=== PATIENT | male | born 1970 | race Caucasian/White ===

== ENCOUNTER 2024-05-30 17:23 | Emergency (ER) | payer MEDICAID, SELFPAY ==
[2024-05-30 17:24] VITALS: BMI 21.0
[2024-05-30 17:43] VITALS: BP 138/88; PULSE 75; RESP 20; TEMP 36.7; O2SAT 94
--- NOTE | 2024-05-30 17:53 | PD.EDRME ---
Rapid Medical Screening Exam RME Arrival date/time: 05/30/24 17:23 54-year-old male presents emergency department complaints of abdominal pain ongoing since Chief Complaint: Nausea/Vomiting/Diarrhea Vital signs: Vital Signs Temperature 98.1 F 05/30/24 17:43 Pulse Rate 75 05/30/24 17:43 Respiratory Rate 20 05/30/24 17:43 Blood Pressure 138/88 H 05/30/24 17:43 Pulse Oximetry (%) 94 L 05/30/24 17:43 Oxygen Delivery Method Room Air 05/30/24 17:43
[2024-05-30] MEDS: MG HYD/AL HYD/SIME (Maalox Reg) SUSP 30 ML UDC PO (18:06)
[2024-05-30] MEDS: FAMOTIDINE 20 MG TABLET PO (18:06)
[2024-05-30] MEDS: LIDOCAINE VISCOUS 2% 15 ML UDC PO (18:06)
[2024-05-30 18:08] LABS: Collection Type, Urine Clean Catch; Squamous Epithelial Cell,Urine 0 /hpf (0-5)
[2024-05-30 18:11] LABS: Basophils % (Auto) 1 % (0-2.5); Eosinophils % (Auto) 1 % (0-10); Hematocrit 39.6 % (41.0-53.0); Hemoglobin 14.3 g/dL (13.5-16.0); Immature Granulocytes % (Auto) 0 % (0-0); Immature Granulocytes Auto 0.01 Thou/mm3 (0.00-0.00); Lymphocytes # (Auto) 2.2 Thou/mm3 (1.0-4.8); Lymphocytes % (Auto) 37 % (10-50); Mean Corpuscular HGB Conc 36.1 g/dl (31.0-37.0); Mean Corpuscular Hemoglobin 32.8 pg (25.0-35.0); Mean Corpuscular Volume 91 fL (80-100); Monocytes # (Auto) 0.5 Thou/mm3 (0.0-0.8); Monocytes % (Auto) 8 % (0-12); Neutrophils # (Auto) 3.1 Thou/mm3 (1.8-7.7); Neutrophils % (Auto) 53 % (37-80); Nucleated Red Blood Cell % 0 /100 WBC (0); Platelet Count 261 Thou/mm3 (140-440); RDW Standard Deviation 39.1 fL (35.1-43.9); Red Blood Count 4.36 Miln/mm3 (4.50-5.90); White Blood Count 5.8 Thou/mm3 (3.8-10.6)
[2024-05-30 18:14] LABS: Bilirubin,Urine Negative (Negative); Blood,Urine Negative (Negative); Clarity,Urine Clear (Clear/Hazy); Color,Urine Colorless (Lt Yel-Yel); Culture Indicated,Urine Not Indicated; Glucose, Urine Negative (Negative); Ketones,Urine Negative (Negative); Leukocyte Esterase,Urine Negative (Negative); Nitrite,Urine Negative (Negative); Protein,Urine Negative (Neg - Trace); RBC,Urine 2 /hpf (0-3); Specific Gravity,Urine 1.006 (1.001-1.035); Urobilinogen,Urine Negative mg/dL (0.0-1.0); WBC,Urine < 1 /hpf (0-5)
[2024-05-30 18:20] LABS: Amphetamine/Methamp Scrn,U Negative (Negative); Barbiturate Screen,Urine Negative (Negative); Benzodiazepines Screen,Urine Negative (Negative); Benzoylecgonine Screen, Ur Negative (Negative); Fentanyl Screen,Urine Negative (Negative); Opiate Screen,Urine Negative (Negative); THC Screen,Urine Negative (Negative)
[2024-05-30 18:32] LABS: Alanine Aminotransferase 48 U/L (10-49); Albumin, Serum 4.7 gm/dL (3.5-5.0); Albumin/Globulin Ratio 1.6 (1.2-2.2); Alkaline Phosphatase 117 U/L (46-116); Anion Gap 8 (7-16); Aspartate Amino Transferase 66 U/L (0-34); BUN/Creatinine Ratio 12 Ratio (12-20); Blood Urea Nitrogen 12 mg/dL (9-23); Calcium 9.5 mg/dL (8.3-10.6); Calcium (Corrected) 9.5 mg/dL (8.5-10.1); Carbon Dioxide 27.7 mMol/L (20.0-31.0); Chloride 101 mMol/L (98-107); Estimated Creatinine Clearance 82.8 mL/min (>60); Globulin 2.9 gm/dL (2.3-3.5); Glucose 72 mg/dL (74-106); Lipase 47 U/L (12-53); Osmolality,Calculated 272 (275-295); Potassium 4.1 mMol/L (3.4-5.1); Sodium 137 mMol/L (136-145); Total Protein 7.6 gm/dL (5.7-8.2); Troponin I < 0.020 ng/mL (0.0-0.045); eGFR > 60 See Note
--- NOTE | 2024-05-30 18:49 | EKG_ITS ---
[facility] Test Date: 2024-05-30 Pat Name: INES CARRANZA Department: Room: - Gender: Male [employer]: : 1970 Requested By: Kayode Mckenna Order Number: [id number] Reading MD: Kayode Mckenna Measurements Intervals [place] Rate: 60 P: 56 FL: 154 QRS: 0 QRSD: 98 T: 48 QT: 395 QTc: 396 Interpretive Statements SINUS RHYTHM NONSPECIFIC ST ELEVATION [0.05+ mV ST ELEVATION] No previous ECG available for comparison /store/S0/[id number].pdf
--- NOTE | 2024-05-30 18:49 | XR_ITS ---
Examination: PA lateral chest 2 views Technique: Upright PA lateral chest 2 views Exam date and time: May 30, 2024 1914 hrs. Comparison September 12, 2020 Indications: Shortness of breath cardiac palpitations beginning 2 days ago. Findings: Pulmonary nodule right lower lung zone measures 26 mm compared to 23 mm on July 13, 2020 Normal heart size Parenchymal disease in the right middle lobe obscuring detail right cardiac contour No pulmonary edema The osseous structures are intact Impression: Right middle lobe pneumonia Pulmonary nodule right lower lung zone 26 mm, this nodule measured [address] chest April 24, 2018
--- NOTE | 2024-05-30 20:22 | PD.EDADULT ---
ED General RME/HPI General Chief complaint: Nausea/Vomiting/Diarrhea Stated complaint: BURNING SENSATON IN STOMACH & THROAT X5 DAYS Time Seen by Provider: 05/30/24 20:12 Arrival date/time: 05/30/24 17:23 RME / HPI RME / HPI narrative: 54-year-old male patient came in for evaluation regarding substernal burning sensation, epigastric pain, cough, and throat pain for 5 days, patient told me that during the first day he was vomiting a lot. Patient denies any shortness of breath denies any other complaints no medications taken prior travel. Related Data Previous Rx's ?Medication ?Instructions ?Recorded amoxicillin 875 mg-potassium 1 tab PO BID #14 tabs 05/30/24 clavulanate 125 mg tablet azithromycin 250 mg tablet 250 mg PO QDAY 4 days #4 tabs 05/30/24 (Zithromax) ondansetron HCl 4 mg tablet 4 mg PO Q8H PRN nausea and 05/30/24 vomiting 5 days #20 tabs pantoprazole 40 mg tablet,delayed 40 mg PO QDAY #20 tabs 05/30/24 release (Protonix) Allergies Allergy/AdvReac Type Severity Reaction Status Date / Time No Known Allergies Allergy Verified 05/30/24 17:28 Review of Systems Review of Systems Narrative Review of Systems: Review of system reviewed and within normal limits except mentioned in HPI ED Exam Narrative Physical exam: VITAL SIGNS: Reviewed. GENERAL APPEARANCE: Alert and interactive, follows commands, no acute distress, HEAD AND FACE: Non-traumatic. ENT: PERRL, pink conjunctivitis, eyelid no trauma, Mucous membrane moist. NECK: Supple, nontender, no nuchal rigidity. CHEST: No tenderness, no crepitus, no paradoxical movement, no retractions. LUNGS: Clear, well ventilated, symmetric, no rales, no wheezing, no ronchi, no stridor, good breath sounds bilaterally. HEART: Regular rate, regular rhythm, no murmur, no gallops. ABDOMEN: Soft, positive bowel sounds, nondistended, no guarding, nontender, no rebound, no masses, RECTAL: Deferred. GENITAL: Deferred. NEUROLOGICAL: Gross motor function intact sensory function intact, Appropriate for age. MUSCULOSKELETAL: low back nontender, full range of motion. EXTREMITIES: Nontender, full range of motion. SKIN: Color pink, dry, no rash, no lacerations, no abrasions, no contusions. LYMPHATICS: Deferred. Course Quality Measures none Orders Category Date Time Status Bedside Influenza A&B Antigen Test NOW Care 05/30/24 17:53 Completed EKG (ED ONLY) *Do not use* NOW Care 05/30/24 18:49 Completed EKG (ED Only) Stat Exams 05/30/24 18:49 Ordered XR chest 2V Stat Exams 05/30/24 18:49 Completed CBC Stat Lab 05/30/24 17:59 Completed Comprehensive Metabolic Panel Stat Lab 05/30/24 17:59 Completed Drug Screen,Urine Stat Lab 05/30/24 18:00 Completed Lipase Stat Lab 05/30/24 17:59 Completed Troponin I Stat Lab 05/30/24 17:59 Completed UA, C/S IF [Urinalysis, C/S if Indicated] Stat Lab 05/30/24 18:00 Completed Amoxicillin/Pot Clav 875 [Augmentin 875] Med 05/30/24 20:21 Once 1 tab PO X1 ONE Azithromycin Po [Zithromax PO] Med 05/30/24 20:21 Once 500 mg PO X1 ONE Famotidine [Pepcid] Med 05/30/24 17:52 Discontinued 20 mg PO X1 ONE Lidocaine 2% Viscous [Xylocaine 2% Viscous] Med 05/30/24 17:52 Discontinued 15 ml PO X1 ONE mg Hyd/Al Hyd/Snehal Susp [Maalox Susp] Med 05/30/24 17:52 Discontinued 30 ml PO X1 ONE Vital Signs Vital signs: Vital Signs Temperature 98.1 F 05/30/24 17:43 Pulse Rate 75 05/30/24 17:43 Respiratory Rate 20 05/30/24 17:43 Blood Pressure 138/88 H 05/30/24 17:43 Pulse Oximetry (%) 94 L 05/30/24 17:43 Oxygen Delivery Method Room Air 05/30/24 17:43 [facility] Patient data External records reviewed:: None Clinical information provided by:: patient Social determinants that could affect healthcare access:: none Patient has the following chronic illnesses:: None How is presenting disease/condition affected by chronic disease/condition?: uneffected by Evaluation data The following diagnostics were reviewed and interpreted by me:: lab results and radiology exam(s) Lab and/or radiology exams considered but not ordered:: None Interpretation Summary: See above in the MDM Medications Medications considered but not ordered:: None Medication administrations:: Medication Administration History Discontinued Medications Al Hydrox/Mg Hydrox/Simethicone (Mg Hyd/Al Hyd/Snehal (Maalox Reg) Susp 30 Ml Udc) 30 ml PO X1 ONE Stop: 05/30/24 17:53 Last Admin: 05/30/24 18:06 Dose: 30 ml Documented By: ER Amoxicillin/Clavulanate Potassium (Amoxicillin/Pot Clav 875 Tablet) 1 tab PO X1 ONE Stop: 05/30/24 20:22 Azithromycin (Azithromycin 250 Mg Tablet) 500 mg PO X1 ONE Stop: 05/30/24 20:22 Famotidine (Famotidine 20 Mg Tablet) 20 mg PO X1 ONE Stop: 05/30/24 17:53 Last Admin: 05/30/24 18:06 Dose: 20 mg Documented By: ER Lidocaine HCl (Lidocaine Viscous 2% 15 Ml Udc) 15 ml PO X1 ONE Stop: 05/30/24 17:53 Last Admin: 05/30/24 18:06 Dose: 15 ml Documented By: ER Augmentin, Zithromax, Maalox, famotidine and lidocaine viscus Consultations Consultation(s) initiated? (list below): No Diagnosis Differential Diagnosis ED Complaint MDM: GERD, vomiting, pneumonia Most likely diagnosis given after review of the tests above:: Pneumonia Admission Indicated Admission indicated?: not indicated Explain why admission is indicated or not indicated:: Stable Admission Request Was there a request for admission?: No Disposition Plan Disposition Plan: Discharge Discharge Attestation Discharge Attestation: The patient was given an opportunity to ask questions and understood the discharge instructions. Discharge instructions specifically effects, indications for sooner follow up or return to the emergency department, and the expected course of current diagnosis. Patient condition: Stable Medical Decision Making MDM Narrative MDM Narrative: 54-year-old male patient came in for evaluation regarding substernal burning sensation, epigastric pain, cough, and throat pain for 5 days, patient told me that during the first day he was vomiting a lot. Patient denies any shortness of breath denies any other complaints no medications taken prior travel. EKG as interpreted by me shows sinus rhythm, ventricular rate of 60 bpm, no ST segment elevation or depressions. Chest x-ray showed right middle lobe pneumonia. Laboratory workup all came back unremarkable. Urinalysis no UTI. Patient received Zithromax and Augmentin in the emergency room. Was also given Maalox Pepcid. Patient appears nontoxic and hemodynamically stable. Patient discharged home and instructed to follow-up with primary care provider in 24 to 48 hours. Instructed to return to the emergency department immediately if worsening of symptoms Differential Diagnosis Differential Diagnosis: GERD, vomiting, pneumonia Lab Data 05/30/24 17:59 05/30/24 17:59 Labs: Lab Results 05/30/24 05/30/24 Range/Units 17:59 18:00 WBC 5.8 (3.8-10.6) Thou/mm3 RBC 4.36 L (4.50-5.90) Miln/mm3 Hgb 14.3 (13.5-16.0) g/dL Hct 39.6 L (41.0-53.0) % MCV 91 (80-100) fL MCH 32.8 (25.0-35.0) pg MCHC 36.1 (31.0-37.0) g/dl RDW Std Deviation 39.1 (35.1-43.9) fL Plt Count 261 (140-440) Thou/mm3 Neut % (Auto) 53 (37-80) % Lymph % (Auto) 37 (10-50) % [place] % (Auto) 8 (0-12) % Eos % (Auto) 1 (0-10) % Baso % (Auto) 1 (0-2.5) % Neut # (Auto) 3.1 (1.8-7.7) Thou/mm3 Lymph # (Auto) 2.2 (1.0-4.8) Thou/mm3 [place] # (Auto) 0.5 (0.0-0.8) Thou/mm3 Eos # (Auto) 0.0 (0.0-0.5) Thou/mm3 Baso # (Auto) 0.0 (0.0-0.2) Thou/mm3 Immature Gran # (Auto) 0.01 H (0.00-0.00) Thou/mm3 Absolute Nucleated RBC 0.00 (0.00-0.00) Thou/mm3 Immature Gran % 0 (0-0) % Nucleated RBC % 0 (0) /100 WBC Sodium 137 (136-145) mMol/L Potassium 4.1 (3.4-5.1) mMol/L Chloride 101 (98-107) mMol/L Carbon Dioxide 27.7 (20.0-31.0) mMol/L Anion Gap 8 (7-16) BUN 12 (9-23) mg/dL Creatinine 1.0 (0.6-1.3) mg/dL Estim Creat Clear Calc 82.8 (>60) mL/min eGFR > 60 (60 - ) See Note BUN/Creatinine Ratio 12 (12-20) Ratio Glucose 72 L (74-106) mg/dL Calculated Osmolality 272 L (275-295) Calcium 9.5 (8.3-10.6) mg/dL Corrected Calcium 9.5 (8.5-10.1) mg/dL Total Bilirubin 1.0 (0.3-1.2) mg/dL AST 66 H (0-34) U/L ALT 48 (10-49) U/L Alkaline Phosphatase 117 H (46-116) U/L Troponin I < 0.020 (0.0-0.045) ng/mL Total Protein 7.6 (5.7-8.2) gm/dL Albumin 4.7 (3.5-5.0) gm/dL Globulin 2.9 (2.3-3.5) gm/dL Albumin/Globulin Ratio 1.6 (1.2-2.2) Lipase 47 (12-53) U/L Ur Collection Type Clean Catch Urine Color Colorless A (Lt Yel-Yel) Urine Clarity Clear (Clear/Hazy) Urine pH 6.0 (5.0-7.0) Ur Specific [place] 1.006 (1.001-1.035) Urine Protein Negative (Neg - Trace) Urine Glucose (UA) Negative (Negative) Urine Ketones Negative (Negative) Urine Blood Negative (Negative) Urine Nitrite Negative (Negative) Urine Bilirubin Negative (Negative) Urine Urobilinogen (Auto) Negative (0.0-1.0) mg/dL Ur Leukocyte Esterase Negative (Negative) Urine RBC 2 (0-3) /hpf Urine WBC < 1 (0-5) /hpf Ur Squamous Epith Cells 0 (0-5) /hpf Urine Bacteria None (None) Ur Culture Indicated? Not Indicated Urine Opiates Screen Negative (Negative) Urine Fentanyl Screen Negative (Negative) Ur Barbiturates Screen Negative (Negative) U Amphetamin/Meth Scrn Negative (Negative) U Benzodiazepines Scrn Negative (Negative) U Cocaine Metab Screen Negative (Negative) U Marijuana (THC) Screen Negative (Negative) Discharge Plan Plan Patient Disposition: HOME (Self Care) Disposition Comment: stable Prescriptions/Referrals Prescriptions/Med Rec: New azithromycin [Zithromax] 250 mg tablet 250 mg PO QDAY 4 Days Qty: 4 0RF Rx Instructions: start on day 2 of therapy amoxicillin-pot clavulanate 875-125 mg tablet 1 tab PO BID Qty: 14 0RF ondansetron HCl 4 mg tablet 4 mg PO Q8H PRN (Reason: nausea and vomiting) 5 Days Qty: 20 0RF pantoprazole [Protonix] 40 mg tablet,delayed release (DR/EC) 40 mg PO QDAY Qty: 20 0RF Referrals: No Primary/Family,Physician [Primary Care Provider] - In 1 week Problem List Clinical Impression: Pneumonia, GERD (gastroesophageal reflux disease) Patient/Caregiver Discharge Instructions Discharge Activity: activity as tolerated Education Materials: ED GERD (Adult) Additional Instructions: Thank you for the opportunity for serving you today. You are stable for discharged . You are advised to: Follow-up with your PCP in 1 to 2 days Return to ED for worsening of symptoms Increase oral fluids Take medication as prescribed Print Language: Estonian Stand Alone Forms: Rhonda Award Info., Patient Portal Info Letter
[2024-05-30] MEDS: AMOXICILLIN/POT CLAV 875 TABLET 1 TAB PO (20:33)
[2024-05-30] MEDS: AZITHROMYCIN 250 MG TABLET 500 MG PO (20:33)
== END 2024-05-30 20:39 | disposition home or self-care (01) ==
PROVIDERS: Nurse Practitioner Primary Care; Emergency Provider Emergency Medicine
DX: J18.9 Pneumonia, unspecified organism (principal); K21.9 Gastro-esophageal reflux disease without esophagitis
CPT/HCPCS: 36415; 71046; 80053; 80307; 81001; 83690; 84484; 85025; 87400; 93005; 99283; J3490; A9270

== ENCOUNTER 2024-06-06 10:22 | Inpatient (IN) | payer MEDICAID, SELFPAY ==
[2024-06-06] VITALS (8 sets, daily range): BP systolic 113–134; BP diastolic 77–98; PULSE 58–134; RESP 16–97; TEMP 36.6–37.1; O2SAT 9–98; BMI 20.2
--- NOTE | 2024-06-06 11:13 | XR_ITS ---
EXAMINATION: Ankle, left 3 views . Technique: Ankle AP, oblique, lateral 3 views Date and time of exam: June 06, 2024 11:29 AM Indications: Injury to the ankle today, ankle pain. Findings: Medial malleolar soft tissue swelling No acute fracture No ankle dislocation Impression: No acute ankle fracture
--- NOTE | 2024-06-06 11:15 | PD.EDRME ---
Rapid Medical Screening Exam RME Arrival date/time: 06/06/24 10:22 This is a 54-year-old male who presents to the emergency department with complaints of pain and possible infection to his left ankle. I have greeted and performed a focused initial assessment of this patient. Initial appropriate labs ordered at this time. A comprehensive ED assessment and evaluation of the patient and analysis of all test and completion of medical decision making process will be conducted by additional ED provider. Chief Complaint: Ankle/Foot Injury Time Seen by Provider: 06/06/24 10:54 Vital signs: Vital Signs Temperature 97.8 F 06/06/24 11:07 Pulse Rate 89 06/06/24 11:07 Respiratory Rate 19 06/06/24 11:07 Blood Pressure 125/98 H 06/06/24 11:07 Pulse Oximetry (%) 98 06/06/24 11:07 Oxygen Delivery Method Room Air 06/06/24 11:07
[2024-06-06 12:48] LABS: Lactate (Lactic Acid) 2.1 mMol/L (0.4-2.0)
[2024-06-06 12:54] LABS: Basophils % (Auto) 0 % (0-2.5); Eosinophils % (Auto) 0 % (0-10); Immature Granulocytes % (Auto) 1 % (0-0); Immature Granulocytes Auto 0.15 Thou/mm3 (0.00-0.00); Lymphocytes # (Auto) 0.6 Thou/mm3 (1.0-4.8); Lymphocytes % (Auto) 4 % (10-50); Mean Corpuscular HGB Conc 35.9 g/dl (31.0-37.0); Mean Corpuscular Hemoglobin 32.7 pg (25.0-35.0); Mean Corpuscular Volume 91 fL (80-100); Monocytes # (Auto) 1.6 Thou/mm3 (0.0-0.8); Monocytes % (Auto) 9 % (0-12); Neutrophils # (Auto) 15.5 Thou/mm3 (1.8-7.7); Neutrophils % (Auto) 86 % (37-80); Nucleated Red Blood Cell % 0 /100 WBC (0); Platelet Count 282 Thou/mm3 (140-440); RDW Standard Deviation 40.2 fL (35.1-43.9); Red Blood Count 4.28 Miln/mm3 (4.50-5.90); White Blood Count 17.9 Thou/mm3 (3.8-10.6)
[2024-06-06 13:28] LABS: Alanine Aminotransferase 43 U/L (10-49); Albumin, Serum 5.2 gm/dL (3.5-5.0); Albumin/Globulin Ratio 1.9 (1.2-2.2); Alkaline Phosphatase 87 U/L (46-116); Anion Gap 15 (7-16); Aspartate Amino Transferase 43 U/L (0-34); BUN/Creatinine Ratio 27 Ratio (12-20); Bilirubin,Total 3.2 mg/dL (0.3-1.2); Blood Urea Nitrogen 59 mg/dL (9-23); Calcium 10.1 mg/dL (8.3-10.6); Calcium (Corrected) 10.1 mg/dL (8.5-10.1); Carbon Dioxide 23.6 mMol/L (20.0-31.0); Chloride 102 mMol/L (98-107); Creatinine (Component) 2.2 mg/dL (0.6-1.3); Estimated Creatinine Clearance 36.1 mL/min (>60); Globulin 2.7 gm/dL (2.3-3.5); Glucose 136 mg/dL (74-106); Osmolality,Calculated 299 (275-295); Potassium 3.3 mMol/L (3.4-5.1); Sodium 141 mMol/L (136-145); Total Protein 7.9 gm/dL (5.7-8.2); eGFR 35 See Note
[2024-06-06 14:12] LABS: Sed Rate (ESR) 7 mm/hr (0-20)
[2024-06-06 14:19] LABS: Amphetamine/Methamp Scrn,U Negative (Negative); Barbiturate Screen,Urine Negative (Negative); Benzodiazepines Screen,Urine Negative (Negative); Benzoylecgonine Screen, Ur Negative (Negative); Fentanyl Screen,Urine Negative (Negative); Opiate Screen,Urine Negative (Negative); THC Screen,Urine Negative (Negative)
[2024-06-06 15:46] LABS: Reflex Lactate? Y
[2024-06-06 16:04] LABS: Lactic Acid, 3 HR 1.6 mMol/L (0.4-2.0)
--- NOTE | 2024-06-06 16:14 | XR_ITS ---
Examination: Abdomen sonogram, Limited Date and time of exam: June 06, 2024 at 1908 hrs. Indications: Elevation total bilirubin on laboratory examination today Technique: Real-time william scale transabdominal sonographic images of the upper abdomen obtained. Findings: Normal gallbladder Normal common bile duct 0.3 cm Pancreatic head 2.7 cm Liver 15.2 cm lobular contour fatty infiltration no focal liver lesions Normal hepatopedal portal venous flow Patent IVC Impression: Normal gallbladder Normal common bile duct Primary hepatocellular disease versus cirrhosis, clinical correlation advised
--- NOTE | 2024-06-06 16:18 | EDNOTE_ITS ---
<Statement entered by Peace Rogers MD - 06/07/24 03:23> As co-signing physician, I was present and available for consult prn. I concur with the plan and care as documented by the midlevel provider. ED General RME/HPI General Chief complaint: Ankle/Foot Injury Stated complaint: RIGHT FOOT SWELLING AND WOUNDED, POSS DRUG USE Time Seen by Provider: 06/06/24 10:54 Arrival date/time: 06/06/24 10:22 RME / HPI RME / HPI narrative: 54-year-old male patient with significant history of chronic alcohol abuse, drinking 4 or more total con beers every day, last drink 3 days ago came in for evaluation regarding redness and swelling posterior ankle. It has been ongoing for 2 weeks. Patient also was noted to be not eating and drinking for the last 2 days. Patient was noted to be shaky and told me that he probably having withdrawal of alcohol already. Daughter was with the patient who told me some of the story. Patient denies any homicidal or suicidal ideation. Related Data Previous Rx's ?Medication ?Instructions ?Recorded amoxicillin 875 mg-potassium 1 tab PO BID #14 tabs 05/30/24 clavulanate 125 mg tablet pantoprazole 40 mg tablet,delayed 40 mg PO QDAY #20 tabs 05/30/24 release (Protonix) Allergies Allergy/AdvReac Type Severity Reaction Status Date / Time No Known Allergies Allergy Verified 06/06/24 10:25 Review of Systems Review of Systems Narrative Review of Systems: Review of system reviewed and within normal limits except mentioned in HPI ED Exam Narrative Physical exam: VITAL SIGNS: Reviewed. GENERAL APPEARANCE: Alert and interactive, follows commands, no acute distress, shaky, anxious HEAD AND FACE: Non-traumatic. ENT: PERRL, pink conjunctivitis, eyelid no trauma, Mucous membrane moist. NECK: Supple, nontender, no nuchal rigidity. CHEST: No tenderness, no crepitus, no paradoxical movement, no retractions. LUNGS: Clear, well ventilated, symmetric, no rales, no wheezing, no ronchi, no stridor, good breath sounds bilaterally. HEART: Regular rate, regular rhythm, no murmur, no gallops. ABDOMEN: Soft, positive bowel sounds, nondistended, no guarding, nontender, no rebound, no masses, RECTAL: Deferred. GENITAL: Deferred. NEUROLOGICAL: Gross motor function intact sensory function intact, Appropriate for age. MUSCULOSKELETAL: low back nontender, full range of motion. EXTREMITIES: + redness noted on the posterior foot, posterior ankle, and nonfluctuant mild tenderness, full range of motion. SKIN: Color pink, dry, no rash, no lacerations, no abrasions, no contusions. LYMPHATICS: Deferred. Course Quality Measures none Orders Category Date Time Status COVID-19 Screening Questionnaire NOW Care 06/06/24 19:58 Active Decision to Admit X1 Care 06/06/24 19:58 Active Miscellaneous Nursing Order NOW Care 06/06/24 16:22 Active US gall bladder Stat Exams 06/06/24 16:14 Completed XR ankle comp LT min 3V Stat Exams 06/06/24 11:13 Completed Alcohol, Blood Medical Stat Lab 06/06/24 15:58 Completed CBC Stat Lab 06/06/24 12:17 Completed CMP [Comprehensive Metabolic Panel] Stat Lab 06/06/24 12:17 Completed CRP [C-Reactive Protein] Stat Lab 06/06/24 12:17 Completed Drug Screen,Urine Stat Lab 06/06/24 13:19 Completed Lactate (Lactic Acid) Stat Lab 06/06/24 12:17 Completed Lactic Acid, 3 HR Stat Lab 06/06/24 15:58 Completed Procalcitonin Stat Lab 06/06/24 12:17 Completed Sed Rate (ESR) Stat Lab 06/06/24 12:17 Completed LORazepam [Ativan Inj] Med 06/06/24 16:14 Discontinued 1 mg IVP X1 ONE LORazepam [Ativan Inj] Med 06/06/24 19:08 Discontinued 1 mg IVP X1 ONE PHENobarbital Inj 130 mg Med 06/06/24 16:15 Discontinued Sodium Chloride 0.9% Flush [NS Flush] 12 ml IVP X1 Sodium Chloride 0.9% 1000 ml [Ns] 1,000 ml Med 06/06/24 16:15 Discontinued IV 999 mls/hr Sodium Chloride 0.9% 1000 ml [Ns] 1,000 ml Med 06/06/24 16:16 Discontinued IV 999 mls/hr Vancomycin Inj 1,000 mg Med 06/06/24 16:17 Discontinued Sodium Chloride 0.9% 250 ml [Ns] 250 ml IV X1 ceFAZolin/D5W 1 GM IVPB [Ancef Ivpb] Med 06/06/24 16:14 Discontinued 1 gm in 50 ml IV X1 Vital Signs Vital signs: Vital Signs Temperature 97.8 F 06/06/24 11:07 Pulse Rate 89 06/06/24 11:07 Respiratory Rate 19 06/06/24 11:07 Blood Pressure 125/98 H 06/06/24 11:07 Pulse Oximetry (%) 98 06/06/24 11:07 Oxygen Delivery Method Room Air 06/06/24 11:07 [facility] Patient data External records reviewed:: None Clinical information provided by:: patient Social determinants that could affect healthcare access:: alcohol use Patient has the following chronic illnesses:: Chronic alcoholism How is presenting disease/condition affected by chronic disease/condition?: e xacerbated by Evaluation data The following diagnostics were reviewed and interpreted by me:: lab results and radiology exam(s) Lab and/or radiology exams considered but not ordered:: None Interpretation Summary: See results in the [facility] Medications Medications considered but not ordered:: None Medication administrations:: Medication Administration History Discontinued Medications Phenobarbital Sodium 130 mg/ (Sodium Chloride 12 ml) 0 mg IVP X1 ONE Stop: 06/06/24 16:16 Last Admin: 06/06/24 18:36 Dose: 130 mg Documented By: [facility] Sodium Chloride (Ns) 1,000 mls @ 999 mls/hr IV .Q1H1M ONE Stop: 06/06/24 17:15 Last Admin: 06/06/24 18:39 Dose: 999 mls/hr Documented By: [facility] Cefazolin Sodium/Dextrose (Ancef Ivpb) 1 gm in 50 mls @ 100 mls/hr IV X1 ONE Stop: 06/06/24 16:43 Last Infusion: 06/06/24 19:02 Dose: Infused Documented By: Admin: 06/06/24 18:41 Dose: 100 mls/hr Documented By: [facility] Sodium Chloride (Ns) 1,000 mls @ 999 mls/hr IV .Q1H1M ONE Stop: 06/06/24 17:16 Last Admin: 06/06/24 18:43 Dose: 999 mls/hr Documented By: [facility] Vancomycin HCl 1,000 mg/ (Sodium Chloride) 250 mls @ 150 mls/hr IV X1 ONE Stop: 06/06/24 17:56 Last Admin: 06/06/24 18:46 Dose: 150 mls/hr Documented By: [facility] Comments: WOULD NOT SCAN Lorazepam (Lorazepam 2 Mg/Ml Vial) 1 mg IVP X1 ONE Stop: 06/06/24 16:15 Last Admin: 06/06/24 18:35 Dose: 1 mg Documented By: [facility] Lorazepam (Lorazepam 2 Mg/Ml Vial) 1 mg IVP X1 ONE Stop: 06/06/24 19:09 Ativan, Vanco, IV fluids x 2 L, phenobarbital IV, and Ancef Consultations Consultation(s) initiated? (list below): No Diagnosis Differential Diagnosis ED Complaint MDM: Alcohol withdrawal, cellulitis foot,/ankle, liver cirrhosis Most likely diagnosis given after review of the tests above:: Alcohol withdrawal symptoms, cellulitis foot/ankle Admission Indicated Admission indicated?: indicated Explain why admission is indicated or not indicated:: Stable for admission Admission Request Was there a request for admission?: Yes Admission Attestation Admission request attestation: Discussed case with [Dr. Cramer] from Hospitalist service regarding admission. Discussed patients ED course, exam findings, labs, and radiology results. The Hospitalist [agrees,] to accept the patient for admission. Disposition Plan Disposition Plan: Admit Medical Decision Making MDM Narrative MDM Narrative: 54-year-old male patient with significant history of chronic alcohol abuse, drinking 4 or more total con beers every day, last drink 3 days ago came in for evaluation regarding redness and swelling posterior ankle. It has been ongoing for 2 weeks. Patient also was noted to be not eating and drinking for the last 2 days. Patient was noted to be shaky and told me that he probably having withdrawal of alcohol already. Daughter was with the patient who told me some of the story. Patient denies any homicidal or suicidal ideation. Initial CIWA score was noted to be 33. Patient workup today is significant for leukocytosis 17.9, potassium 3.3 and creatinine 2.2, BUN of 59, evaluated patient total bili of 3.2 AST of 43 C- reactive 14 Pro-Maykel of 13.7.. Ultrasound gallbladder came back unremarkable. X-ray of the ankle also came back unremarkable. Patient was given Ancef, Vanco, 2 L of IV fluids, patient was also given Ativan IV, and phenobarbital IV. Spoke with hospitalist, who admitted the patient Differential Diagnosis Differential Diagnosis: Alcohol withdrawal, cellulitis foot,/ankle, liver cirrhosis Lab Data 06/06/24 12:17 06/06/24 12:17 Labs: Lab Results 06/06/24 06/06/24 06/06/24 Range/Units 12:17 13:19 15:58 WBC 17.9 H D (3.8-10.6) Thou/mm3 RBC 4.28 L (4.50-5.90) Miln/mm3 Hgb 14.0 (13.5-16.0) g/dL Hct 39.0 L (41.0-53.0) % MCV 91 (80-100) fL MCH 32.7 (25.0-35.0) pg MCHC 35.9 (31.0-37.0) g/dl RDW Std Deviation 40.2 (35.1-43.9) fL Plt Count 282 (140-440) Thou/mm3 Neut % (Auto) 86 H (37-80) % Lymph % (Auto) 4 L (10-50) % Elbert % (Auto) 9 (0-12) % Eos % (Auto) 0 (0-10) % Baso % (Auto) 0 (0-2.5) % Neut # (Auto) 15.5 H (1.8-7.7) Thou/mm3 Lymph # (Auto) 0.6 L (1.0-4.8) Thou/mm3 Elbert # (Auto) 1.6 H (0.0-0.8) Thou/mm3 Eos # (Auto) 0.0 (0.0-0.5) Thou/mm3 Baso # (Auto) 0.0 (0.0-0.2) Thou/mm3 Immature Gran # (Auto) 0.15 H (0.00-0.00) Thou/mm3 Absolute Nucleated RBC 0.00 (0.00-0.00) Thou/mm3 Immature Gran % 1 H (0-0) % Nucleated RBC % 0 (0) /100 WBC ESR 7 (0-20) mm/hr Sodium 141 (136-145) mMol/L Potassium 3.3 L (3.4-5.1) mMol/L Chloride 102 (98-107) mMol/L Carbon Dioxide 23.6 (20.0-31.0) mMol/L Anion Gap 15 (7-16) BUN 59 H (9-23) mg/dL Creatinine 2.2 H D (0.6-1.3) mg/dL Estim Creat Clear Calc 36.1 L (>60) mL/min eGFR 35 L (60 - ) See Note BUN/Creatinine Ratio 27 H (12-20) Ratio Glucose 136 H (74-106) mg/dL Calculated Osmolality 299 H (275-295) Lactic Acid 2.1 H 1.6 (0.4-2.0) mMol/L Calcium 10.1 (8.3-10.6) mg/dL Corrected Calcium 10.1 (8.5-10.1) mg/dL Total Bilirubin 3.2 H (0.3-1.2) mg/dL AST 43 H (0-34) U/L ALT 43 (10-49) U/L Alkaline Phosphatase 87 (46-116) U/L C-Reactive Prot, Quant 14.0 H (0.0-0.9) mg/dL Total Protein 7.9 (5.7-8.2) gm/dL Albumin 5.2 H (3.5-5.0) gm/dL Globulin 2.7 (2.3-3.5) gm/dL Albumin/Globulin Ratio 1.9 (1.2-2.2) Procalcitonin 13.70 H (0.0-0.49) ng/ml Urine Opiates Screen Negative (Negative) Urine Fentanyl Screen Negative (Negative) Ur Barbiturates Screen Negative (Negative) U Amphetamin/Meth Scrn Negative (Negative) U Benzodiazepines Scrn Negative (Negative) U Cocaine Metab Screen Negative (Negative) U Marijuana (THC) Screen Negative (Negative) Ethyl Alcohol < 10.0 (0-10.0) mg/dL Discharge Plan Plan Patient Disposition: Admit Acute Care w/in Hospital Disposition Comment: Stable Prescriptions/Referrals Prescriptions/Med Rec: No Action amoxicillin-pot clavulanate 875-125 mg tablet 1 tab PO BID Qty: 14 0RF pantoprazole [Protonix] 40 mg tablet,delayed release (DR/EC) 40 mg PO QDAY Qty: 20 0RF Referrals: Sage Barreto MD [Primary Care Provider] - In 1 week Problem List Clinical Impression: Alcohol withdrawal syndrome, Cellulitis of foot Patient/Caregiver Discharge Instructions Print Language: Swedish Stand Alone Forms: Rhonda Award Info., Patient Portal Info Letter
[2024-06-06 16:49] LABS: Alcohol, Blood Medical < 10.0 mg/dL (0-10.0)
--- NOTE | 2024-06-06 17:31 | PC.NURSE ---
Patient states he drinks a few bud lights a day and last drink was saturday06/05/24
[2024-06-06] MEDS: LORazepam 2 MG/ML VIAL 1 MG IVP ×2 (18:35→20:26)
[2024-06-06] MEDS: PHENobarbital Inj 130 MG, SODIUM CHLORIDE 0.9% FLUSH 12 ML IVP (18:36)
[2024-06-06] MEDS: SODIUM CHLORIDE 0.9% 1000 ML 1,000 ML 999 ML IV ×2 (18:39→18:43)
[2024-06-06] MEDS: ceFAZolin/D5W 1 GM IVPB 1 GM/50 ML BAG IV (18:41)
[2024-06-06] MEDS: Vancomycin Inj 1,000 MG in SODIUM CHLORIDE 0.9% 250 ML 250 ML 150 MG IV (18:46)
--- NOTE | 2024-06-06 20:51 | PD.RESHP ---
Documentation for date of: 06/06/24 HPI History of Present Illness Chief complaint: Left heel redness, swelling x 2 weeks History of present illness: Patient is a 54-year-old male with past medical history of alcohol use disorder who presented to the ED on 06/06/2024 with complaint of redness and swelling to the left heel. At the time of evaluation history is limited due to patient mental status, he had just received 1 mg lorazepam and was lethargic. Patient states he hit the left heel but does not further describe the injury. On chart review of ED notes patient was shaky during intake and initial CIWA 33. Patient had stated last drink was 2 days ago. Patient endorses drinking 5-6 24 oz beers daily. He denies any smoking or other drug use. ED Course: -Initial vitals were within normal limits, patient on room air. -Labs significant for WBC 17.9 with left shift, K 3.3, creatinine 2.2 (baseline 0.9), lactic acid 2.1->1.6, Tbili 3.2, CK 654, CRP 14.0, procalcitonin 13.70 -Utox negative, alcohol level <10.0 -L ankle X-ray showed no acute fracture -Gallbladder US showed normal gallbladder and CBD, primary hepatocellular disease versus cirrhosis -CXR showed R base pneumonia, stable pulmonary mass in the right lower lung zone noted, approximately 24 mm, this nodule measured [address] chest April 24, 2018 -In the ED, patient was given lorazepam 1 mg IV x2, phenobarbital 130 mg IV x1, 1L NS bolus x2 (2L total), cefazolin 1 g IV x1, vancomycin 1 g IV x1 -Patient was admitted for alcohol withdrawal Review of Systems Review of systems otherwise negative except what is mentioned above. Past Medical History Past Medical History Comments H COMMENT: Past Medical History: Alcohol use disorder Family History: Unable to obtain Surgical History: Umbilical hernia repair Social History: Current alcohol use 5-6 24 oz beers daily, denies history of smoking, denies recreational drug use however noted in the chart is remote history of meth positive Utox Current Medications: None (Source: Patient) Allergies: No known drug allergies Exam Vital Signs Temp Pulse Resp BP Pulse Ox O2 Del Method 98 F 70 18 134/77 H 98 Room Air 06/06/24 20:02 06/06/24 20:02 06/06/24 20:02 06/06/24 20:02 06/06/24 20:02 06/06/24 20:02 Narrative Exam Physical Exam General: Lethargic. Arousable to voice and repeated prompting, but falling back asleep. HEENT: Normocephalic, atraumatic, mucous membranes dry. Heart: Tachycardic rate, regular rhythm, no murmurs. Lungs: Clear to auscultation with no wheezing or crackles. Abdomen: Soft, nondistended, nontender, positive bowel sounds. ?No guarding or rebound tenderness. Neurologic: Alert and oriented to self, birthdate, location but not year, lethargic but no gross neurological deficit, and patient able to move all 4 extremities. Extremities: Left posterior heel with area of localized dark erythema and very mild edema, no drainage or purulence. Skin: No rash or ecchymoses. Results: Labs 06/07/24 04:35 06/07/24 04:35 Labs: Short CBC 06/06/24 Range/Units 12:17 WBC 17.9 H D (3.8-10.6) Thou/mm3 Hgb 14.0 (13.5-16.0) g/dL Hct 39.0 L (41.0-53.0) % Plt Count 282 (140-440) Thou/mm3 BMP 06/06/24 12:17 Sodium 141 Potassium 3.3 L Chloride 102 Carbon Dioxide 23.6 BUN 59 H Creatinine 2.2 H D Glucose 136 H Calcium 10.1 Liver Function 06/06/24 Range/Units 12:17 Total Bilirubin 3.2 H (0.3-1.2) mg/dL AST 43 H (0-34) U/L ALT 43 (10-49) U/L Alkaline Phosphatase 87 (46-116) U/L Albumin 5.2 H (3.5-5.0) gm/dL Quality Measures Quality Measures none Medications Home Medications and Allergies Allergies Allergy/AdvReac Type Severity Reaction Status Date / Time No Known Allergies Allergy Verified 06/06/24 10:25 Visit Medications Acetaminophen (Acetaminophen 325 Mg Tablet) 650 mg PO Q6H PRN PRN Reason: Fever >100.4 or Pain 1-10 Stop: 07/06/24 20:41 Chlordiazepoxide HCl (Chlordiazepoxide Hcl 25 Mg Capsule) 25 mg PO Q8HR PRN PRN Reason: CIWA >9 Stop: 06/07/24 20:49 Folic Acid (Folic Acid 1 Mg Tablet) 1 mg PO BID [facility] Stop: 06/11/24 20:59 Heparin Sodium (Porcine) (Heparin Sod Inj 5000 Unit/Ml Vial) 5,000 unit SC Q12HR [facility] Stop: 06/20/24 20:59 Lactated Ringer's (Lactated Ringers) 1,000 mls @ 125 mls/hr IV .Q8H ONE Stop: 06/07/24 04:44 Lorazepam (Lorazepam 2 Mg/Ml Vial) 0.5 mg IV Q2HR PRN PRN Reason: CIWA SCORE 8-13 Stop: 06/11/24 20:46 Lorazepam (Lorazepam 2 Mg/Ml Vial) 1 mg IV Q2HR PRN PRN Reason: CIWA SCORE 14-19 Stop: 06/11/24 20:46 Lorazepam (Lorazepam 2 Mg/Ml Vial) 2 mg IV Q2HR PRN PRN Reason: CIWA SCORE 20-25 Stop: 06/11/24 20:46 Lorazepam (Lorazepam 2 Mg/Ml Vial) 2 mg IVP X1 PRN PRN Reason: Breakthrough Agitation Ondansetron HCl (Ondansetron Inj 2 Mg/Ml Inj 2 Ml) 4 mg IV Q6H PRN; Protocol PRN Reason: NAUSEA OR VOMITING Stop: 07/06/24 20:41 Thiamine HCl (Thiamine 100 Mg Tablet) 100 mg PO BID [facility] Stop: 06/11/24 20:59 Discontinued Medications Phenobarbital Sodium 130 mg/ (Sodium Chloride 12 ml) 0 mg IVP X1 ONE Stop: 06/06/24 16:16 Last Admin: 06/06/24 18:36 Dose: 130 mg Sodium Chloride (Ns) 1,000 mls @ 999 mls/hr IV .Q1H1M ONE Stop: 06/06/24 17:15 Last Admin: 06/06/24 18:39 Dose: 999 mls/hr Cefazolin Sodium/Dextrose (Ancef Ivpb) 1 gm in 50 mls @ 100 mls/hr IV X1 ONE Stop: 06/06/24 16:43 Last Infusion: 06/06/24 19:02 Dose: Infused Sodium Chloride (Ns) 1,000 mls @ 999 mls/hr IV .Q1H1M ONE Stop: 06/06/24 17:16 Last Admin: 06/06/24 18:43 Dose: 999 mls/hr Vancomycin HCl 1,000 mg/ (Sodium Chloride) 250 mls @ 150 mls/hr IV X1 ONE Stop: 06/06/24 17:56 Last Admin: 06/06/24 18:46 Dose: 150 mls/hr Lorazepam (Lorazepam 2 Mg/Ml Vial) 1 mg IVP X1 ONE Stop: 06/06/24 16:15 Last Admin: 06/06/24 18:35 Dose: 1 mg Lorazepam (Lorazepam 2 Mg/Ml Vial) 1 mg IVP X1 ONE Stop: 06/06/24 19:09 Assessment & Plan Plan 54-year-old male with past medical history of alcohol use disorder who presented to the ED on 06/06/2024 with complaint of redness and swelling to the left heel, found to be actively in alcohol withdrawal with high CIWA, admitted for further management. #Alcohol withdrawal -CIWA ordered -Chlordiazepoxide 25 mg PO TID -Seizure precautions -Thiamine 100 mg PO BID -Folic acid 1 mg PO BID -Protonix 40 mg IV qday -Alcohol cessation counseling #STEPHAN, likely prerenal On admission creatinine 2.2 (baseline 0.9). Possibly prerenal secondary to poor PO intake and/or intrarenal due to underlying rhabdomyolysis causing acute tubular necrosis. -Started LR at 125 ml/hr -CTM, avoid nephrotoxins #Left heel wound, possible cellulitis Left posterior heel with area of localized dark erythema and very mild edema, no drainage or purulence. Not septic on admission however WBC 17 and procal is elevated 13. Unknown mechanism of injury. Will treat as cellulitis and start IV abx then transition to PO. -Started IV ceftriaxone 1 g qday -Pending blood cultures #Rhabdomyolysis CK level 654. Etiologies include alcoholism, crush injury of left heel, prolonged immobilization (unknown living situation). -Ordered UA #Hypokalemia On admission K 3.3. -Repleted with 40 mEq IV -Follow CMP #Elevated total bilirubin On admission Tbili 3.2. 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 Gallbladder US negative for obstructions, suggestive of hepatocellular disease. -Follow CMP, assess symptoms #History of HFrEF with an EF of 35%, last echo documented 2020 -Will administer fluids cautiously, heart failure measures in place, will replete electrolytes as needed -Echo ordered #History of right lower pulmonary nodule measuring 23 mm which appears to be stable Appears on imaging since 2018. Unclear if patient is followed up with this in the outpatient setting, he was directed to do so in the past. -Follow outpatient DVT prophylaxis: Heparin 5,000 U subQ GI prophylaxis: Pantoprazole 40 mg IV daily Diet: NPO due to somnolence/high CIWA Escobar: None Lines: Peripheral IV Antibiotics: Cefazolin x1 [06/06], vancomycin x1 [06/06], ceftriaxone [06/06- ] CODE STATUS: FULL Reason for hospitalization: Alcohol withdrawal Patient plan of care was discussed with the attending physician, Dr. Cantu. Vi Cramer, PGY-2 Attending Provider Attestation/Addendum I have discussed and was present for the essential components of the history, physical examination, diagnosis, and treatment plan with the resident. I agree with the patient's care as documented by the resident and amended herein by me. Omid Cantu DO. Although this document has been carefully reviewed, there may still be some phonetic and other typographical errors. These errors are purely grammatical due to imperfections in the software program and should not be construed in any way to compromise the substance of the patient's medical care during this visit.
[2024-06-06] MEDS: cefTRIAXone/D5w 1gm IV premix 50 ML IV (22:20)
[2024-06-06] MEDS: THIAMINE 100 MG TABLET PO (22:21)
[2024-06-06] MEDS: RINGERS LACTATED 1000 ML 1,000 ML 125 ML IV (22:21)
[2024-06-06] MEDS: FOLIC ACID 1 MG TABLET PO (22:21)
[2024-06-06] MEDS: HEPARIN SOD INJ 5000 UNIT/ML VIAL SC (22:22)
--- NOTE | 2024-06-06 22:29 | XR_ITS ---
Examination: AP chest single view Technique one AP portable upright chest single view Exam date and time: June 06, 2024 1036 hrs. Indications: Coughing congestion this week ago, history pulmonary nodule Findings: Mild right base pneumonia Pulmonary mass in the right lower lung zone again noted, approximately 24 mm, this nodule measured [address] chest April 24, 2018 Mild prominence of ventricle Impression: Right base pneumonia
[2024-06-06] MEDS: POTASSIUM CHL 10 mEq IVPB 10 MEQ/100 ML BAG 100 MEQ IV (23:23)
[2024-06-06 23:33] LABS: Creatine Kinase 654 U/L (34-171)
--- NOTE | 2024-06-06 23:39 | PC.NURSE ---
Joelle care done, inc lg amt of urine.
[2024-06-06] MEDS: LORazepam 2 MG/ML VIAL IV (23:48)
[2024-06-07] VITALS (16 sets, daily range): BP systolic 117–150; BP diastolic 79–98; PULSE 46–135; RESP 13–99; TEMP 36.2–37; O2SAT 89–100; BMI 19.7
[2024-06-07] MEDS: chlordiazePOXIDE HCl 25 MG CAPSULE PO ×4 (00:30→21:01)
[2024-06-07] MEDS: POTASSIUM CHL 10 mEq IVPB 10 MEQ/100 ML BAG 100 MEQ IV ×6 (00:30→11:36)
[2024-06-07] MEDS: LORazepam 2 MG/ML VIAL IV (03:07)
[2024-06-07] MEDS: LORazepam 2 MG/ML VIAL 0.5 MG IV ×2 (06:04→15:17)
[2024-06-07 06:42] LABS: Basophils % (Auto) 0 % (0-2.5); Eosinophils % (Auto) 0 % (0-10); Hematocrit 30.9 % (41.0-53.0); Hemoglobin 10.7 g/dL (13.5-16.0); Immature Granulocytes % (Auto) 1 % (0-0); Immature Granulocytes Auto 0.04 Thou/mm3 (0.00-0.00); Lymphocytes % (Auto) 14 % (10-50); Mean Corpuscular HGB Conc 34.6 g/dl (31.0-37.0); Mean Corpuscular Hemoglobin 33.2 pg (25.0-35.0); Mean Corpuscular Volume 96 fL (80-100); Monocytes # (Auto) 0.8 Thou/mm3 (0.0-0.8); Monocytes % (Auto) 11 % (0-12); Neutrophils # (Auto) 5.5 Thou/mm3 (1.8-7.7); Neutrophils % (Auto) 74 % (37-80); Nucleated Red Blood Cell % 0 /100 WBC (0); Platelet Count 144 Thou/mm3 (140-440); RDW Standard Deviation 42.6 fL (35.1-43.9); Red Blood Count 3.22 Miln/mm3 (4.50-5.90); White Blood Count 7.5 Thou/mm3 (3.8-10.6)
[2024-06-07 07:15] LABS: Alanine Aminotransferase 33 U/L (10-49); Albumin, Serum 3.8 gm/dL (3.5-5.0); Albumin/Globulin Ratio 1.9 (1.2-2.2); Alkaline Phosphatase 63 U/L (46-116); Anion Gap 7 (7-16); Aspartate Amino Transferase 49 U/L (0-34); BUN/Creatinine Ratio 41 Ratio (12-20); Bilirubin,Total 1.5 mg/dL (0.3-1.2); Blood Urea Nitrogen 41 mg/dL (9-23); Calcium 8.6 mg/dL (8.3-10.6); Calcium (Corrected) 8.8 mg/dL (8.5-10.1); Carbon Dioxide 26.1 mMol/L (20.0-31.0); Chloride 109 mMol/L (98-107); Estimated Creatinine Clearance 77.6 mL/min (>60); Glucose 71 mg/dL (74-106); Magnesium 2.4 mg/dL (1.6-2.6); Osmolality,Calculated 291 (275-295); Phosphorous 1.9 mg/dL (2.4-5.1); Potassium 3.3 mMol/L (3.4-5.1); Sodium 142 mMol/L (136-145); Total Protein 5.8 gm/dL (5.7-8.2); eGFR > 60 See Note
--- NOTE | 2024-06-07 08:08 | EKG_ITS ---
[facility] Test Date: 2024-06-07 Pat Name: INES CARRANZA Department: Room: S253A Gender: Male Cat Hooker: AMY : 1970 Requested By: Jason Lan Order Number: [id number] Reading MD: Jason Lan Measurements Intervals [place] Rate: 51 P: 41 MS: 144 QRS: 3 QRSD: 97 T: 16 QT: 442 QTc: 408 Interpretive Statements SINUS BRADYCARDIA MINIMAL VOLTAGE CRITERIA FOR LVH, CONSIDER NORMAL VARIANT Compared to ECG 05/30/2024 19:12:48 Sinus rhythm no longer present ST (T wave) deviation no longer present /store/S0/[id number].pdf
--- NOTE | 2024-06-07 08:21 | PC.NURSE ---
MD Wasiq made aware that patient's HR drops down as low as 41. Pt is asymptomatic. STAT EKG ordered
[2024-06-07] MEDS: THIAMINE 100 MG TABLET PO ×2 (08:47→20:47)
[2024-06-07] MEDS: FOLIC ACID 1 MG TABLET PO ×2 (08:47→20:47)
[2024-06-07] MEDS: PANTOPRAZOLE INJ 40 MG VIAL IV (08:47)
[2024-06-07] MEDS: POTASSIUM PHOS 22.5 MMOL in SODIUM CHLORIDE 0.9% 500 ML 500 ML 82.778 MMOL IV (08:47)
[2024-06-07] MEDS: HEPARIN SOD INJ 5000 UNIT/ML VIAL SC ×2 (08:47→20:47)
--- NOTE | 2024-06-07 09:19 | PC.SS ---
Patient Shai Ross is a 54 Year old male admitted for Alcohol Withdrawal. SS met with patient at bedside to discuss discharge plan and complete initial assessment. Patient was able to verify demographic information. Patient appeared to be alert and oriented. Patient reports he lives in a trailer behind families house. Patient is able to complete all ADL's independently and does not utilize any source of DME. Choice of pharmacy is [facility]. Pt states he drinks 4 tall cans a day for many years. Pt states he is interested in sobriety. Pt open to receiving resources, the following were provided to the pt: Health and Human Services office information on alcohol abuse, the warm line, list of mental health clinics, list of AA meetings, list of alcohol rehabs, and community resource list. PCP is Sage Barreto. Patient reports that he will return back home at time of discharge. SS will need to assist with transportation. Next of Kin, Daughter, Keshawn Ross [phone] Discharge Plan: Home
[2024-06-07 09:28] LABS: Creatine Kinase 612 U/L (34-171)
--- NOTE | 2024-06-07 11:37 | PD.RESPRO ---
Documentation for date of: 06/07/24 Subjective Subjective Interval history: Patient was seen and examined at the bedside this morning. Patient is admitted for alcohol withdrawal and left heel cellulitis. 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 Patient was admitted overnight with extreme somnolence due to Ativan given in the ED therefore limited history was taken. This morning he was AOx3 however was drowsy to answer further questions. He reported that he drinks 24 ounces of alcohol every day. Last drink was yesterday. Examination showed lungs clear to auscultation. Left heel had cellulitis with erythema with clear defined margins with tenderness. Vitals revealed blood pressure stable however he was bradycardic 51 bpm. EKG was ordered which showed sinus bradycardia. He was saturating well on room air. Labs showed improvement in white count and drop of hemoglobin to 10.7 with albumin drop as well most likely dilutional. CHEM panel showed hypokalemia and potassium was repleted. Lactic acidosis resolved. IV K-Phos was given for hypophosphatemia. T. bili improved. AST mildly elevated. Creatinine kinase downtrending. Urinalysis was negative. U tox was negative. Ultrasound gallbladder was unremarkable. Chest x-ray showed right base pneumonia. Ankle x-ray was negative. Will continue with CIWA protocol and added Librium 25 3 times daily. Morning CIWA score was 10. Will continue with ceftriaxone and added doxycycline to cover for pneumonia and cellulitis both. Given history of heart failure with reduced ejection fraction we will follow-up on echocardiogram. He would benefit from goal-directed medical therapy if blood pressure remains stable as outpatient. All labs and orders were reviewed. Exam Vital Signs Temp Pulse Resp BP Pulse Ox O2 Del Method 97.2 F 57 L 15 117/81 97 Room Air 06/07/24 04:00 06/07/24 09:04 06/07/24 09:04 06/07/24 04:00 06/07/24 04:00 06/07/24 04:00 Narrative Exam General: Lethargic. Arousable to voice and repeated prompting, but falling back asleep. HEENT: Normocephalic, atraumatic, mucous membranes dry. Heart: Tachycardic rate, regular rhythm, no murmurs. Lungs: Clear to auscultation with no wheezing or crackles. Abdomen: Soft, nondistended, nontender, positive bowel sounds. ?No guarding or rebound tenderness. Neurologic: Alert and oriented to self, birthdate, location but not year, lethargic but no gross neurological deficit, and patient able to move all 4 extremities. Extremities: Left posterior heel with area of localized dark erythema and very mild edema, no drainage or purulence. Skin: Left posterior heel with area of localized dark erythema and mild edema. No drainage or purulence. Objective Labs 06/07/24 04:35 06/07/24 04:35 Labs: Laboratory Results - last 24 hr 06/06/24 06/06/24 06/06/24 12:17 13:19 15:58 WBC 17.9 H D RBC 4.28 L Hgb 14.0 Hct 39.0 L MCV 91 MCH 32.7 MCHC 35.9 RDW Std Deviation 40.2 Plt Count 282 Neut % (Auto) 86 H Lymph % (Auto) 4 L [place] % (Auto) 9 Eos % (Auto) 0 Baso % (Auto) 0 Neut # (Auto) 15.5 H Lymph # (Auto) 0.6 L [place] # (Auto) 1.6 H Eos # (Auto) 0.0 Baso # (Auto) 0.0 Immature Gran # (Auto) 0.15 H Absolute Nucleated RBC 0.00 Immature Gran % 1 H Nucleated RBC % 0 ESR 7 Sodium 141 Potassium 3.3 L Chloride 102 Carbon Dioxide 23.6 Anion Gap 15 BUN 59 H Creatinine 2.2 H D Estim Creat Clear Calc 36.1 L eGFR 35 L BUN/Creatinine Ratio 27 H Glucose 136 H Calculated Osmolality 299 H Lactic Acid 2.1 H 1.6 Calcium 10.1 Corrected Calcium 10.1 Phosphorus Magnesium Total Bilirubin 3.2 H AST 43 H ALT 43 Alkaline Phosphatase 87 Total Creatine Kinase C-Reactive Prot, Quant 14.0 H Total Protein 7.9 Albumin 5.2 H Globulin 2.7 Albumin/Globulin Ratio 1.9 Procalcitonin 13.70 H Urine Opiates Screen Negative Urine Fentanyl Screen Negative Ur Barbiturates Screen Negative U Amphetamin/Meth Scrn Negative U Benzodiazepines Scrn Negative U Cocaine Metab Screen Negative U Marijuana (THC) Screen Negative Ethyl Alcohol < 10.0 06/06/24 06/07/24 23:00 04:35 WBC 7.5 D RBC 3.22 L Hgb 10.7 L D Hct 30.9 L MCV 96 MCH 33.2 MCHC 34.6 RDW Std Deviation 42.6 Plt Count 144 D Neut % (Auto) 74 Lymph % (Auto) 14 [place] % (Auto) 11 Eos % (Auto) 0 Baso % (Auto) 0 Neut # (Auto) 5.5 Lymph # (Auto) 1.0 [place] # (Auto) 0.8 Eos # (Auto) 0.0 Baso # (Auto) 0.0 Immature Gran # (Auto) 0.04 H Absolute Nucleated RBC 0.00 Immature Gran % 1 H Nucleated RBC % 0 ESR Sodium 142 Potassium 3.3 L Chloride 109 H Carbon Dioxide 26.1 Anion Gap 7 BUN 41 H Creatinine 1.0 D Estim Creat Clear Calc 77.6 eGFR > 60 BUN/Creatinine Ratio 41 H Glucose 71 L D Calculated Osmolality 291 Lactic Acid Calcium 8.6 D Corrected Calcium 8.8 Phosphorus 1.9 L Magnesium 2.4 Total Bilirubin 1.5 H D AST 49 H ALT 33 Alkaline Phosphatase 63 D Total Creatine Kinase 654 H 612 H D C-Reactive Prot, Quant Total Protein 5.8 Albumin 3.8 D Globulin 2.0 L Albumin/Globulin Ratio 1.9 Procalcitonin Urine Opiates Screen Urine Fentanyl Screen Ur Barbiturates Screen U Amphetamin/Meth Scrn U Benzodiazepines Scrn U Cocaine Metab Screen U Marijuana (THC) Screen Ethyl Alcohol Quality Measures Quality Measures VTE prophylaxis (Heparin subcut) Assessment & Plan Assessment Current Active Medications: Generic Name Dose Route Start Last Admin Trade Name Freq PRN Reason Stop Dose Admin Acetaminophen 650 mg 06/06/24 20:42 Acetaminophen 325 Mg Tablet PO 07/06/24 20:41 Q6H PRN Fever >100.4 or Pain 1-10 Chlordiazepoxide HCl 25 mg 06/06/24 23:50 06/07/24 05:55 Chlordiazepoxide Hcl 25 Mg Capsule PO 06/07/24 23:49 25 mg Q8HR JASMEET Administration Dextrose 25 ml 06/07/24 08:09 Dextrose 50%-Water Inj 50 Ml Syringe IV 07/07/24 08:08 Q15MIN PRN BG 50-70 responsive npo pt Dextrose 50 ml 06/07/24 08:09 Dextrose 50%-Water Inj 50 Ml Syringe IV 07/07/24 08:08 Q15MIN PRN BG <50 OR BG <70 & pt unresponsive Folic Acid 1 mg 06/06/24 21:00 06/07/24 08:47 Folic Acid 1 Mg Tablet PO 06/11/24 20:59 1 mg BID JASMEET Administration Glucagon 1 mg 06/07/24 08:09 Glucagon Inj 1 Mg Vial IM Q15MIN PRN BG <70, and no IV access Heparin Sodium (Porcine) 5,000 unit 06/06/24 21:00 06/07/24 08:47 Heparin Sod Inj 5000 Unit/Ml Vial SC 06/20/24 20:59 5,000 unit Q12HR JASMEET Administration Ceftriaxone Sodium/Dextrose 50 mls @ 100 mls/hr 06/06/24 21:11 06/06/24 23:04 Rocephin/D5w 1gm Iv Premix IV 06/13/24 21:10 Infused QDAY@2100 JASMEET Infusion Potassium Phosphate 22.5 mmol/ 507.5 mls @ 82.778 mls/hr 06/07/24 08:07 06/07/24 08:47 Sodium Chloride IV 06/07/24 14:14 82.778 mls/hr X1 ONE Administration Doxycycline Hyclate 100 mg/ 100 mls @ 100 mls/hr 06/07/24 10:15 Sodium Chloride IV 06/14/24 10:14 BID JASMEET Lorazepam 0.5 mg 06/06/24 20:47 06/07/24 06:04 Lorazepam 2 Mg/Ml Vial IV 06/11/24 20:46 0.5 mg Q2HR PRN Administration CIWA SCORE 8-13 Lorazepam 1 mg 06/06/24 20:47 Lorazepam 2 Mg/Ml Vial IV 06/11/24 20:46 Q2HR PRN CIWA SCORE 14-19 Lorazepam 2 mg 06/06/24 20:47 06/07/24 03:07 Lorazepam 2 Mg/Ml Vial IV 06/11/24 20:46 2 mg Q2HR PRN Administration CIWA SCORE 20-25 Lorazepam 2 mg 06/06/24 20:47 Lorazepam 2 Mg/Ml Vial IVP X1 PRN Breakthrough Agitation Ondansetron HCl 4 mg 06/06/24 20:42 Ondansetron Inj 2 Mg/Ml Inj 2 Ml IV 07/06/24 20:41 Q6H PRN NAUSEA OR VOMITING Protocol Pantoprazole Sodium 40 mg 06/07/24 09:00 06/07/24 08:47 Pantoprazole Inj 40 Mg Vial IV 07/07/24 08:59 40 mg QDAY JASMEET Administration Thiamine HCl 100 mg 06/06/24 21:00 06/07/24 08:47 Thiamine 100 Mg Tablet PO 06/11/24 20:59 100 mg BID JASMEET Administration Plan This 54-year-old male with past medical history of alcohol use disorder who presented to the ED on 06/06/2024 with complaint of redness and swelling to the left heel, found to be actively in alcohol withdrawal with high CIWA, admitted for further management. #Alcohol withdrawal #Alcohol use disorder -Patient drinks 24 ounces of alcohol every day. Last drink was yesterday. -CIWA ordered -Chlordiazepoxide 25 mg PO TID -Seizure and aspiration precautions -Thiamine 100 mg PO BID -Folic acid 1 mg PO BID -Protonix 40 mg IV qday -Alcohol cessation counseling -Ordered nurse swallow screen and speech evaluation #STEPHAN, likely prerenal, improved On admission creatinine 2.2 (baseline 0.9). Possibly prerenal secondary to poor PO intake and/or intrarenal due to underlying rhabdomyolysis causing acute tubular necrosis. -DC'd for IV fluids -CTM, avoid nephrotoxins #Left heel wound, possible cellulitis and right base community-acquired pneumonia Left posterior heel with area of localized dark erythema and very mild edema, no drainage or purulence. Not septic on admission however WBC 17 and procal is elevated 13. Unknown mechanism of injury. Will treat as cellulitis and start IV abx then transition to PO. Ankle x-ray was negative. -Started IV ceftriaxone 1 g qday 06/06 -Added doxycycline 100 mg IV twice daily, 06/07 -Pending blood cultures and MRSA screen -Wound care #Rhabdomyolysis CK level 654. Etiologies include alcoholism, crush injury of left heel, prolonged immobilization (unknown living situation). -UA was unremarkable -CK downtrending #Hypokalemia On admission K 3.3. -40 mEq potassium repleted x 1 -Follow CMP #Elevated total bilirubin On admission Tbili 3.2. 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 Gallbladder US negative for obstructions, suggestive of hepatocellular disease. -Improvement in T. bili -Outpatient follow-up #History of HFrEF with an EF of 35%, last echo documented 2020 #Possibly related to alcohol induced cardiomyopathy -Will administer fluids cautiously, heart failure measures in place, will replete electrolytes as needed -Pending echocardiogram -Will need goal-directed medical therapy as outpatient #History of right lower pulmonary nodule measuring 23 mm which appears to be stable Appears on imaging since 2018. Unclear if patient is followed up with this in the outpatient setting, he was directed to do so in the past. -Follow outpatient and low-dose CT chest after 6 months #Normocytic anemia -Likely dilutional related to fluids -Monitor CBC -No signs of bleeding -PRBC if hemoglobin below 7 #Lactic acidosis, resolved DVT prophylaxis: Heparin 5,000 U subQ GI prophylaxis: Pantoprazole 40 mg IV daily Diet: Regular diet Escobar: None Lines: Peripheral IV Antibiotics: Cefazolin x1 [06/06], vancomycin x1 [06/06], ceftriaxone [06/06- ] and doxycycline [06/07] CODE STATUS: FULL Disposition: Patient is admitted for further workup and management of alcohol withdrawal and left heel cellulitis and right base pneumonia. Patient was seen and discussed with attending physician, Dr. Bubba Lan MD, PGY 2 Attending Provider Attestation/Addendum I have examined the patient, reviewed labs and imaging findings, discussed the case with the resident(s), and reviewed entered orders. I agree with the plan of care as outlined in this note, with these additional summaries/recommendations: Patient seen at bedside. Patient is somnolent at bedside but easily arousable and responds to questions. Currently patient is not the best historian. We will continue CIWA protocol for alcohol withdrawal plus scheduled Librium. Continue thiamine and folic acid. We will director of group counseling program patient on cessation once mentation improves. Patient noted to have left heel wound/cellulitis. Continue IV Rocephin and blood cultures pending. Acute kidney injury on admission has resolved. Minimally elevated total creatinine kinase on admission with no evidence of heme pigment induced nephropathy. Patient has history of HFrEF with previous echo showing EF of 35%. Does not appear to take goal-directed medical therapy and repeat echocardiogram ordered. Follow-up outpatient for pulmonary nodule. Repeat hematology and chemistry panel in AM. Dr. Mac
[2024-06-07] MEDS: DOXYCYCLINE INJ 100 MG in SODIUM CHLORIDE 0.9% (P) 100 ML IV ×2 (11:43→21:27)
--- NOTE | 2024-06-07 18:25 | PC.NURSE ---
Per Wasiq do not hold librium even though patient is sinus julieta.
--- NOTE | 2024-06-07 18:25 | PC.NURSE ---
Report given to FELISA Sexton at this time
[2024-06-07] MEDS: cefTRIAXone/D5w 1gm IV premix 50 ML IV (20:46)
[2024-06-07 22:41] LABS: Collection Type, Urine Clean Catch; Squamous Epithelial Cell,Urine 0 /hpf (0-5)
[2024-06-07 22:49] LABS: Bilirubin,Urine Negative (Negative); Blood,Urine Negative (Negative); Clarity,Urine Clear (Clear/Hazy); Color,Urine Yellow (Lt Yel-Yel); Glucose, Urine 1+ (Negative); Ketones,Urine Negative (Negative); Leukocyte Esterase,Urine Negative (Negative); Nitrite,Urine Negative (Negative); PH,Urine 5.5 (5.0-7.0); Protein,Urine Negative (Neg - Trace); RBC,Urine < 1 /hpf (0-3); WBC,Urine 1 /hpf (0-5)
[2024-06-08] VITALS (8 sets, daily range): BP systolic 113–141; BP diastolic 75–100; PULSE 60–83; RESP 12–97; TEMP 36.4–36.8; O2SAT 95–99
[2024-06-08 06:25] LABS: Basophils % (Auto) 0 % (0-2.5); Eosinophils % (Auto) 1 % (0-10); Hematocrit 31.2 % (41.0-53.0); Hemoglobin 10.9 g/dL (13.5-16.0); Immature Granulocytes % (Auto) 0 % (0-0); Immature Granulocytes Auto 0.01 Thou/mm3 (0.00-0.00); Lymphocytes # (Auto) 1.4 Thou/mm3 (1.0-4.8); Lymphocytes % (Auto) 32 % (10-50); Mean Corpuscular HGB Conc 34.9 g/dl (31.0-37.0); Mean Corpuscular Hemoglobin 32.7 pg (25.0-35.0); Mean Corpuscular Volume 94 fL (80-100); Monocytes # (Auto) 0.5 Thou/mm3 (0.0-0.8); Monocytes % (Auto) 12 % (0-12); Neutrophils # (Auto) 2.4 Thou/mm3 (1.8-7.7); Neutrophils % (Auto) 55 % (37-80); Nucleated Red Blood Cell % 0 /100 WBC (0); Platelet Count 151 Thou/mm3 (140-440); RDW Standard Deviation 41.1 fL (35.1-43.9); Red Blood Count 3.33 Miln/mm3 (4.50-5.90); White Blood Count 4.4 Thou/mm3 (3.8-10.6)
[2024-06-08 06:53] LABS: Alanine Aminotransferase 36 U/L (10-49); Albumin, Serum 3.4 gm/dL (3.5-5.0); Albumin/Globulin Ratio 1.6 (1.2-2.2); Alkaline Phosphatase 59 U/L (46-116); Anion Gap 8 (7-16); Aspartate Amino Transferase 42 U/L (0-34); BUN/Creatinine Ratio 28 Ratio (12-20); Blood Urea Nitrogen 17 mg/dL (9-23); Calcium 8.7 mg/dL (8.3-10.6); Calcium (Corrected) 9.2 mg/dL (8.5-10.1); Chloride 108 mMol/L (98-107); Creatinine (Component) 0.6 mg/dL (0.6-1.3); Estimated Creatinine Clearance 131.5 mL/min (>60); Globulin 2.1 gm/dL (2.3-3.5); Glucose 89 mg/dL (74-106); Magnesium 1.9 mg/dL (1.6-2.6); Osmolality,Calculated 283 (275-295); Phosphorous 1.6 mg/dL (2.4-5.1); Potassium 3.4 mMol/L (3.4-5.1); Sodium 142 mMol/L (136-145); Total Protein 5.5 gm/dL (5.7-8.2); eGFR > 60 See Note
[2024-06-08] MEDS: PANTOPRAZOLE INJ 40 MG VIAL IV (08:34)
[2024-06-08] MEDS: THIAMINE 100 MG TABLET PO (08:34)
[2024-06-08] MEDS: FOLIC ACID 1 MG TABLET PO (08:34)
[2024-06-08] MEDS: HEPARIN SOD INJ 5000 UNIT/ML VIAL SC (08:35)
[2024-06-08] MEDS: DOXYCYCLINE INJ 100 MG in SODIUM CHLORIDE 0.9% (P) 100 ML IV (08:35)
--- NOTE | 2024-06-08 10:30 | PC.SS ---
SS follow up note; Patient is on CIWA Protocol. Echo and Blood cultures pending.
--- NOTE | 2024-06-08 15:31 | PD.RESPRO ---
Documentation for date of: 06/08/24 Subjective Subjective Interval history: CIWA of 1 since last night at around 7 AM. Last dose of Librium was yesterday. Patient notes he is doing well and feels ready to go home. Denies fevers, chills, diaphoresis, visual or auditory hallucinations. States he is feeling his baseline. Exam Vital Signs Temp Pulse Resp BP Pulse Ox O2 Del Method 97.6 F 65 18 128/84 98 Room Air 06/08/24 12:00 06/08/24 12:00 06/08/24 12:06/08/24 12:06/08/24 12:06/08/24 12:00 Narrative Exam Constitutional: In no acute distress Head: Normocephalic/Atraumatic Eyes: no conjunctival injection , symmetrical lids. ENMT: Moist Mucous Membranes, No trauma or injury CVS: RRR, S1 and S2 present, no murmurs, rubs or gallops . RESP: CTAB, no increased work of breathing, no rales, rhonchi or wheezing MSK: No trauma or deformities or masses, clubbing of the fingers Skin: Warm to touch, Dry. No rashes or lesions. No hematomas Neuro: Minor fasciculations of the tongue, small tremors of the fingers, CIWA of 1 Psych: (AAO) x3 . Appropriate mood and affect, denies anxiety, hallucinations. Objective Labs 06/08/24 05:53 06/08/24 05:53 Labs: Laboratory Results - last 24 hr 06/07/24 06/08/24 22:29 05:53 WBC 4.4 D RBC 3.33 L Hgb 10.9 L Hct 31.2 L MCV 94 MCH 32.7 MCHC 34.9 RDW Std Deviation 41.1 Plt Count 151 Neut % (Auto) 55 Lymph % (Auto) 32 [place] % (Auto) 12 Eos % (Auto) 1 Baso % (Auto) 0 Neut # (Auto) 2.4 Lymph # (Auto) 1.4 [place] # (Auto) 0.5 Eos # (Auto) 0.0 Baso # (Auto) 0.0 Immature Gran # (Auto) 0.01 H Absolute Nucleated RBC 0.00 Immature Gran % 0 Nucleated RBC % 0 Sodium 142 Potassium 3.4 Chloride 108 H Carbon Dioxide 26.0 Anion Gap 8 BUN 17 Creatinine 0.6 Estim Creat Clear Calc 131.5 eGFR > 60 BUN/Creatinine Ratio 28 H Glucose 89 Calculated Osmolality 283 Calcium 8.7 Corrected Calcium 9.2 Phosphorus 1.6 L Magnesium 1.9 Total Bilirubin 1.0 D AST 42 H ALT 36 Alkaline Phosphatase 59 Total Protein 5.5 L Albumin 3.4 L Globulin 2.1 L Albumin/Globulin Ratio 1.6 Ur Collection Type Clean Catch Urine Color Yellow Urine Clarity Clear Urine pH 5.5 Ur Specific [place] 1.030 Urine Protein Negative Urine Glucose (UA) 1+ A Urine Ketones Negative Urine Blood Negative Urine Nitrite Negative Urine Bilirubin Negative Urine Urobilinogen (Auto) 4.0 Ur Leukocyte Esterase Negative Urine RBC < 1 Urine WBC 1 Ur Squamous Epith Cells 0 Urine Bacteria None Quality Measures Quality Measures VTE prophylaxis (Heparin subcut) Assessment & Plan Assessment Current Active Medications: Generic Name Dose Route Start Last Admin Trade Name Freq PRN Reason Stop Dose Admin Acetaminophen 650 mg 06/06/24 20:42 Acetaminophen 325 Mg Tablet PO 07/06/24 20:41 Q6H PRN Fever >100.4 or Pain 1-10 Dextrose 25 ml 06/07/24 08:09 Dextrose 50%-Water Inj 50 Ml Syringe IV 07/07/24 08:08 Q15MIN PRN BG 50-70 responsive npo pt Dextrose 50 ml 06/07/24 08:09 Dextrose 50%-Water Inj 50 Ml Syringe IV 07/07/24 08:08 Q15MIN PRN BG <50 OR BG <70 & pt unresponsive Folic Acid 1 mg 06/06/24 21:00 06/08/24 08:34 Folic Acid 1 Mg Tablet PO 06/11/24 20:59 1 mg BID JASMEET Administration Glucagon 1 mg 06/07/24 08:09 Glucagon Inj 1 Mg Vial IM Q15MIN PRN BG <70, and no IV access Heparin Sodium (Porcine) 5,000 unit 06/06/24 21:00 06/08/24 08:35 Heparin Sod Inj 5000 Unit/Ml Vial SC 06/20/24 20:59 5,000 unit Q12HR JASMEET Administration Ceftriaxone Sodium/Dextrose 50 mls @ 100 mls/hr 06/06/24 21:11 06/07/24 22:35 Rocephin/D5w 1gm Iv Premix IV 06/13/24 21:10 Infused QDAY@2100 JASMEET Infusion Doxycycline Hyclate 100 mg/ 100 mls @ 100 mls/hr 06/07/24 10:15 06/08/24 08:35 Sodium Chloride IV 06/14/24 10:14 100 mls/hr BID JASMEET Administration Lorazepam 0.5 mg 06/06/24 20:47 06/07/24 15:17 Lorazepam 2 Mg/Ml Vial IV 06/11/24 20:46 0.5 mg Q2HR PRN Administration CIWA SCORE 8-13 Lorazepam 1 mg 06/06/24 20:47 Lorazepam 2 Mg/Ml Vial IV 06/11/24 20:46 Q2HR PRN CIWA SCORE 14-19 Lorazepam 2 mg 06/06/24 20:47 06/07/24 03:07 Lorazepam 2 Mg/Ml Vial IV 06/11/24 20:46 2 mg Q2HR PRN Administration CIWA SCORE 20-25 Lorazepam 2 mg 06/06/24 20:47 Lorazepam 2 Mg/Ml Vial IVP X1 PRN Breakthrough Agitation Ondansetron HCl 4 mg 06/06/24 20:42 Ondansetron Inj 2 Mg/Ml Inj 2 Ml IV 07/06/24 20:41 Q6H PRN NAUSEA OR VOMITING Protocol Pantoprazole Sodium 40 mg 06/07/24 09:00 06/08/24 08:34 Pantoprazole Inj 40 Mg Vial IV 07/07/24 08:59 40 mg QDAY JASMEET Administration Thiamine HCl 100 mg 06/06/24 21:00 06/08/24 08:34 Thiamine 100 Mg Tablet PO 06/11/24 20:59 100 mg BID JASMEET Administration Plan This 54-year-old male with past medical history of alcohol use disorder who presented to the ED on 06/06/2024 with complaint of redness and swelling to the left heel, found to be actively in alcohol withdrawal with high CIWA, admitted for further management. #Alcohol withdrawal #Alcohol use disorder -Patient drinks 24 ounces of alcohol every day. -CIWA of 1 since yesterday afternoon. -Last dose of chlordiazepoxide yesterday -Seizure and aspiration precautions -Thiamine 100 mg PO BID -Folic acid 1 mg PO BID -Protonix 40 mg IV qday -Alcohol cessation counseling -Ordered nurse swallow screen and speech evaluation #STEPHAN, likely prerenal, improved On admission creatinine 2.2 (baseline 0.9). Possibly prerenal secondary to poor PO intake and/or intrarenal due to underlying rhabdomyolysis causing acute tubular necrosis. -DC'd for IV fluids -CTM, avoid nephrotoxins #Left heel wound, possible cellulitis and right base community-acquired pneumonia Left posterior heel with area of localized dark erythema and very mild edema, no drainage or purulence. Not septic on admission however WBC 17 and procal is elevated 13. Unknown mechanism of injury. Will treat as cellulitis and start IV abx then transition to PO. Ankle x-ray was negative. -Started IV ceftriaxone 1 g qday 06/06 -Added doxycycline 100 mg IV twice daily, 06/07 -Pending blood cultures and MRSA screen -Wound care #Rhabdomyolysis CK level 654. Etiologies include alcoholism, crush injury of left heel, prolonged immobilization (unknown living situation). -UA was unremarkable -CK downtrending #Hypokalemia On admission K 3.3. -40 mEq potassium repleted x 1 -Follow CMP #Elevated total bilirubin On admission Tbili 3.2. 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 Gallbladder US negative for obstructions, suggestive of hepatocellular disease. -Improvement in T. bili -Outpatient follow-up #History of HFrEF with an EF of 35%, last echo documented 2020 #Possibly related to alcohol induced cardiomyopathy -Will administer fluids cautiously, heart failure measures in place, will replete electrolytes as needed -Pending echocardiogram -Will need goal-directed medical therapy as outpatient #History of right lower pulmonary nodule measuring 23 mm which appears to be stable Appears on imaging since 2018. Unclear if patient is followed up with this in the outpatient setting, he was directed to do so in the past. -Follow outpatient and low-dose CT chest after 6 months #Normocytic anemia -Likely dilutional related to fluids -Monitor CBC -No signs of bleeding -PRBC if hemoglobin below 7 #Lactic acidosis, resolved DVT prophylaxis: Heparin 5,000 U subQ GI prophylaxis: Pantoprazole 40 mg IV daily Diet: Regular diet [place]: None Lines: Peripheral IV Antibiotics: Cefazolin x1 [06/06], vancomycin x1 [06/06], ceftriaxone [06/06- ] and doxycycline [06/07] CODE STATUS: FULL Disposition: Patient is admitted for further workup and management of alcohol withdrawal and left heel cellulitis and right base pneumonia. Patient was seen and discussed with attending physician, Dr. Bubba Lan MD, PGY 2 Attending Provider Attestation/Addendum I have examined the patient, reviewed labs and imaging findings, discussed the case with the resident(s), and reviewed entered orders. I agree with the plan of care as outlined in this note, with these additional summaries/recommendations: Patient seen at bedside. Patient is somnolent at bedside but easily arousable and responds to questions. Currently patient is not the best historian. We will continue [employer] protocol for alcohol withdrawal plus scheduled Librium. Continue thiamine and folic acid. We will staff counselor patient on cessation once mentation improves. Patient noted to have left heel wound/cellulitis. Continue IV Rocephin and blood cultures pending. Acute kidney injury on admission has resolved. Minimally elevated total creatinine kinase on admission with no evidence of heme pigment induced nephropathy. Patient has history of HFrEF with previous echo showing EF of 35%. Does not appear to take goal-directed medical therapy and repeat echocardiogram ordered. Follow-up outpatient for pulmonary nodule. Repeat hematology and chemistry panel in AM. Dr. Mac
--- NOTE | 2024-06-08 15:40 | ESDS_ITS ---
<Statement entered by Jason Lan MD - 06/08/24 16:32> I saw and examined the patient, and I agree with current management stated by Dr Ruperto DO,PGY1. Plan of care was discussed with the attending physician and resident physician. Disclaimer: Despite multiple revisions, due to the dictation software being used, the document bellow may not be free of grammatical errors including phonetic/typographic errors. However, this does not deter from our commitment to providing health care in the patient's best interest in mind. Dr. Riky MD, PGY 2 Planned Discharge Date 06/08/24 DS: Providers Provider Date of admission: 06/06/24 20:43 Primary care physician: Sage Barreto MD Admitting Provider: Jose Martin Cantu DO Attending Provider on Admission: Dre Mac MD Consults: 06/06/24 21:12 Referral Wound Care Stat Comment: 06/08/24 12:58 Referral OP Wound Healing Dept Routine Comment: Instructions: Left heel truama from poor fitting shoes. Hx of DM. 06/08/24 13:11 Referral Physical Therapy Stat Comment: Physician Instructions: Attending Provider on DC: Dre Mac MD Discharging Provider: Rishi Hickey DO DS: Diagnosis Problem List Completed Was Problem List Reviewed/Reconciled?: Yes Hospital Course Hospital Course Hospital course: Hospital summary: Patient admitted to the ED on 06/06 for alcohol withdrawals. History of alcohol use disorder. Was also found to have cellulitis of the left leg with well- healed scar of the left heel. Last drink 2 days prior to admission. Patient w as placed on CIWA and started on Librium for alcohol withdrawals. By the time of discharge he had been noticed CIWA of 1 and off medication for over 12 hours. We were treating cellulitis with IV ceftriaxone and doxycycline in hospital. At the time of discharge, we discussed at length the risks of continuing alcohol use including cirrhosis, end-stage liver disease and . We offered resource s to the patient but he declined. Prescribed doxycycline for continued management of cellulitis and started on goal-directed therapy for his HFrEF with lisinopril 2.5 daily. We told patient that he needs to follow-up with his primary care for further workup of his HFrEF and to get on goal-directed therapy and have an outpatient ultrasound done of his heart. Patient understands that he needs to follow-up with [facility] in 4 days for wound management. Patient was discharged from hospital. Discharge instructions: Continue taking doxycycline 100 mg twice daily for 5 more days to complete antibiotic course Take thiamine and folic acid Take Protonix and Zofran as needed Follow-up with PCP as outpatient within 2 weeks Follow-up with automotive heavy mechanic as outpatient within 2 weeks as you have history of heart failure and you need to follow-up with echocardiogram Advised to completely stop drinking alcohol as it is toxic to your liver and heart In case of emergency, call 911 or come back to the ED Discharge diagnoses: #Alcohol withdrawal?resolved #STEPHAN, likely prerenal,?resolved #Left heel wound, possible cellulitis and right base community-acquired pneumonia #Rhabdomyolysis?resolved #Hypokalemia?resolved #Elevated total bilirubin?resolved #History of HFrEF with an EF of 35%, last echo documented 2020 #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 ENMT: Moist Mucous Membranes, No trauma or injury. CVS: RRR, S1 and S2 present, no murmurs, rubs or gallops . MSK: Clubbing of the fingers RESP: CTAB, no increased work of breathing, no rales, rhonchi or wheezing Skin: Warm to touch, Dry. No rashes or lesions. No hematomas Neuro: Minor fasciculations of the tongue and tremors of the fingers. Psych: (AAO) x3 . Appropriate mood and affect. Discharge Plan Plan Patient Disposition: HOME (Self Care) Disposition Comment: Stable Patient condition on transfer: Stable Care Plan Goals: Continue taking doxycycline 100 mg twice daily for 5 more days to complete antibiotic course Take thiamine and folic acid Take Protonix and Zofran as needed Follow-up with PCP as outpatient within 2 weeks Follow-up with automotive heavy mechanic as outpatient within 2 weeks as you have history of heart failure and you need to follow-up with echocardiogram Advised to completely stop drinking alcohol as it is toxic to your liver and heart In case of emergency, call 911 or come back to the ED Prescriptions/Referrals Prescriptions/Med Rec: New thiamine mononitrate (vit B1) 100 mg Tablet 100 mg PO BID Qty: 30 0RF folic acid 1 mg Tablet 1 mg PO BID 30 Days Qty: 60 0RF doxycycline monohydrate 100 mg capsule 100 mg PO BID 5 Days Qty: 10 0RF lisinopril 2.5 mg tablet 2.5 mg PO QDAY Qty: 30 0RF Dakin's Solution 0.125 % solution 1 applic topical BID Qty: 473 0RF Continued ondansetron HCl 4 mg Tablet 4 mg PO Q6H PRN (Reason: Nausea) pantoprazole [Protonix] 40 mg tablet,delayed release (DR/EC) 40 mg PO QDAY Qty: 30 2RF Referrals: Sage Barreto MD [Primary Care Provider] - Patient/Caregiver Discharge Instructions Other Discharge Activity Instructions:: 1) Follow up at [facility], [address] [place] [address]. Call [phone] for appointment. 2) Wound care to left back of heel: -Wash hands and remove old dressing -Cleanse wound with wound cleanser spray and pat dry with gauze. -Wash hands again -Apply thin layer of therahoney gel to wound bed and cover with foam dressing -Change once a day and as needed for falling off. 3) May shower with dressing on than change dressing after showering. If active bleeding occurs, apply tight dressing and return to MD or ER. ?Notify primary doctor or return to Emergency Room if any of the following: ?Fever above 100.6? F. ?Increased pain ?Increase swelling ?Red streaks around your wound ?Drainage becomes foul smelling or changes color ?The wound is larger or deeper ?The wound looks dried out or dark ?Bleeding that does not stop with holding pressure Education Materials: Nutrition for Wound Healing, Heart Failure: Tracking Your Weight, Alcohol Withdrawal: What to Expect, Addiction Ask These Questions, Addiction: Getting Help, Addiction: Your Treatment Options, Addiction Recovery Counseling, Heart Failure Dc, Changing Dressing Dc, Heart Failure and Physical Activity Print Language: Palauan Stand Alone Forms: Rhonda Award Info., Patient Portal Info Letter Discharge Order Discharge Orders: Discharge (Routine); Ordered 06/08/24 Ordered By: Jason Lan Quality Discharge Quality Measures VTE prophylaxis MD Attestestation MD Attestation I have examined the patient, reviewed labs and imaging findings, discussed the case with the resident(s), and reviewed entered orders. I agree with the plan of care as outlined in this note. Dr. Mac
--- NOTE | 2024-06-08 16:54 | PC.NURSE ---
Patient having new onset of pain from walking on foot with wound. MD notified and recommended tylenol for pain management. Educated patient to follow up with primary care physician if pain worsening or unable to walk. Wound nurse changed dressing and educated patient on how to manage dressing changes. Instructions provided with discharge patient verbalized understanding and daughter at bedside for education. Patient stated does not have primary, gave [facility] and paper to make appointment for new primary care physician. Educated patient that when calling for primary care physician appointment to also get a referral for cardiology and outpatient echo. Patient also stated does not have any medications at home. MD notified of need for refill of continued medications.
== END 2024-06-08 16:34 | disposition home or self-care (01) | DRG 775 ==
LOC: SERX 19:58 → SERHOLD 06-08 07:14 → S2SX 06-08 07:14 → S2NX 06-08 07:14
PROVIDERS: Nurse Practitioner Family; Nurse Practitioner Primary Care; Student in an Organized Health Care Education/Training Program; Admitting Provider Student in an Organized Health Care Education/Training Program; Emergency Provider Emergency Medicine; PCP Family Medicine; Visit Provider Student in an Organized Health Care Education/Training Program
DX: F10.139 Alcohol abuse with withdrawal, unspecified (principal); N17.9 Acute kidney failure, unspecified; M62.82 Rhabdomyolysis; E87.6 Hypokalemia; I50.22 Chronic systolic (congestive) heart failure; I42.6 Alcoholic cardiomyopathy; E87.20 Acidosis, unspecified; D64.9 Anemia, unspecified; R00.1 Bradycardia, unspecified; J18.9 Pneumonia, unspecified organism; L03.116 Cellulitis of left lower limb; Y90.0 Blood alcohol level of less than 20 mg/100 ml
CPT/HCPCS: 36415; 71045; 73610; 76705; 80053; 80307; 80320; 81001; 82550; 83605; 83735; 84100; 84145; 85025; 85652; 86140; 87040; 87081; 92610; 93005; 96365; 96367; 96375; 96376; 97162; 99285; A4216; J0689; J0696; J1643; J2060; J2470; J2560; J3371; J3480; J3490; J7030; J7040; J7050; J7120; A9270; G0480

== ENCOUNTER 2024-06-15 09:35 | Outpatient (AMB) | payer MEDICAID, SELFPAY ==
[2024-06-15 09:45] VITALS: BP 111/76; PULSE 71; RESP 17; TEMP 36.5; O2SAT 97; BMI 21.1
--- NOTE | 2024-06-15 09:45 | ACNOTE_ITS ---
Vital Signs 06/15/24 09:45 Height 1.8 m Height Method Stated Weight 68.719 kg Weight Measurement Method Standing Scale BMI 21.1 BP 111/76 Blood Pressure Source Automatic Cuff Blood Pressure Location Right Upper Arm Position Sitting Respiration 17 Pulse 71 Pulse Source Monitor Temp 97.7 F Temp Source Temporal Artery Scan Pulse Oximetry (%) 97 Oxygen Delivery Method Room Air Allergies/Meds Allergies & Medications Allergies No Known Allergies Allergy (Verified 06/15/24 09:46) MA Intake Visit Data Collection New Patient or Established: Established Patient (seen at [facility] within 3 years) Seen by Clinical Staff ONLY (RN/MA): No Pain Present Currently: No Pain scale:: 0 Pain Scale Used: Hebert-Barr/Numerical Ornamental Metalwork Designer Required: No PCP or OBGYN visit in last 3 months: No Hx Now: No Do You Feel Safe at Home: Yes Authorities Contacted: N/A Smoking Status Smoking Status: Never smoker Immunization / Flu Flu Vaccine in the Last 12 Months: No Flu Vaccine Exclusion Criteria: No Exclusion Criteria Past Medical History Past Medical History NEUROLOGIC: Negative Seizures CARDIAC: Positive Congestive Heart Failure; Negative Cardiac Disorders RESPIRATORY: Negative Chronic Obstructive Pulmonary Disease (COPD) or Asthma GASTROINTESTINAL: Positive Gastrointestinal Disorders GENITOURINARY: Positive Kidney Stones; Negative Renal Disease ENDOCRINE: Negative Diabetes Mellitus Type 1 or Diabetes Mellitus Type 2 HEMATOLOGIC: Negative Sickle Cell Disease PSYCHO/SOCIAL: Positive Recreational Drug Use, Depression and Anxiety OTHER HISTORY: Negative Blood Transfusions, Blood Transfusion Reaction or Anesthesia Reactions Family History FAMILY HISTORY: Positive Family Cardiac Disorders Surgical History SURGICAL: Positive Abdominal Surgery Social History SMOKING STATUS: Smoking status: Never smoker ALCOHOL: Alcohol Intake: Former HOUSING: Housing: Homeless LIVES WITH: Lives With: Alone Patient Portal Questionaires Social History Living Situation History Housing: Homeless Housing Other:: Pt resides w/family Tobacco History Smoking Status: Never smoker Alcohol History Alcohol Intake: Former Domestic Abuse History Do You Feel Safe at Home: Yes Review of Systems Report any current symptoms Only answer those that you have currently: Past Medical History Past Medical History Have you ever been diagnosed with any of the following: Neurological Problems Seizures: No Cardiology Problems Congestive Heart Failure: Yes Respiratory Problems Chronic Obstructive Pulmonary Disease (COPD): No Asthma: No Genital/Urinary Problems Renal Disease: No Kidney Stones: Yes Endocrine Problems Diabetes Mellitus Type 1: No Diabetes Mellitus Type 2: No Blood Problems Sickle Cell Disease: No Psychologic Problems Recreational Drug Use: Yes Depression: Yes Anxiety: Yes Other Problems Blood Transfusions: No Blood Transfusion Reaction: No Anesthesia Reactions: No History of Present Illness HPI Narrative 54 y/o M with PMHx significant for of alcohol use disorder presented to clinic for follow up on recent hospitilization. Patient was discharged from hospital on 06/08 due to alcohol withdrawal. During stay, patient was treated for cellulitis of left heel. Patient was also evaluated for HFrEF, was unable to obtain echo inpatient. Lung nodule seen on CXR, appears stable compared to previous CT in 2018, but no workup done. Patient reports no alcohol use since discharge. Has completed his course of antibiotics. Heel ulcer examined, no discharge, clean, minimally tender. Denies orthopnea, weakness, fatigue, leg swelling. Referral to wound care placed. CT chest w/ contrast and echo ordered. Will follow up with patient. Review of Systems Review of Systems Systems Reviewed: All systems reviewed, normal except as documented Objective/Exam Narrative Physical exam: PE: Gen: Well-developed and well-nourished. HEENT: NCAT, PERRLA, EOMI, MMM, anicteric conjunctivae. CVS: normal S1 and S2. RRR. No M/R/G. Resp: CTA B/L. No rhonchi, rales, crackles or wheezing. Abd: soft, non-tender, non-distended. BS+ in all 4 quadrants. MSK: Good ROM in BUE & BLE. No edema or rash. Left heel ulcer, bandaged, minimally tender, without discharge/drainage. Neuro: CN II-XII grossly intact. Strength 5/5 in BUE & BLE. Alert and oriented x3. Psych: appropriate mood and affect. Assessment & Plan Diagnosis / Problem List (1) Reduced ejection fraction concurrent with and due to chronic heart failure: Status: Chronic Assessment & Plan: Patient had echo in 2020 showing LVEF 35-40%. Plan: -Patient to continue lisinopril 2.5mg daily -Patient to obtain echo doppler outpatient (2) Lung nodule seen on imaging study: Status: Acute Assessment & Plan: Lung nodule seen on CT in 2017, unclear workup. CXR 2024 did not show change. Plan: -Patient to obtain CT chest w/ contrast outpatient (3) Cellulitis of foot: Status: Acute Assessment & Plan: Patient treated for cellulitis of left heel in hospital. Completed course of antibiotics. Plan: -Referral to wound care Plan Plan of care discussed with attending Dr. Kidd. Zhou Landis MD PGY-1 Orders: Orders CA echo doppler complete 06/15/24 I50.22 - Chronic systolic (congestive) heart failure CT chest w con 06/15/24 R91.1 - Solitary pulmonary nodule Referrals Wound Healing Additional Assessment Internal Medicine Attending Note: Case discussed with and agree with note and management plan of Resident Physician as per Resident's Note above. Issues of concern for present visit are as follows: New patient to clinic. Seen in follow-up from hospitalization for alcohol withdrawal and left heel cellulitis. Concern for heart failure with reduced ejection fraction but unable to obtain echocardiogram while patient was hospitalized. We will order this as an outpatient. Review of records demonstrates a lung nodule greater than 2 cm x 2 cm, was present on CT scan in 2018, as seen on recent chest x-ray as well. We will reimage with CT scan with contrast. Referral to wound care for cellulitis of left heel with small ulcer. Kayode Kidd MD Physician Billing New Patient New Patient: E/M Level 3-CPT 18500 Office Procedures [facility] Level of Care Nursing/Assessment Patient Status: Established Patient Nursing Assessment/Reassessment: Medication Reconciliation, Update PMH in EMR and Vital Signs Coordination of Care: Complex Care and Chronic Disease 1-5, Consent,records obtained, informed consent, Education Simp Pt/Fam, 1 Ins Authorization, Ref for ancillary service and Staff clarify orders Established Patient Charge Established Patient Point Assignment: 120 Established Patient Point Charge: Level 4 (120-155)
== END 2024-06-15 10:22 | disposition home or self-care (01) ==
PROVIDERS: PCP Family Medicine; Referring Provider Family Medicine; Supervising Provider Internal Medicine
DX: I50.22 Chronic systolic (congestive) heart failure (principal); R91.1 Solitary pulmonary nodule; L03.116 Cellulitis of left lower limb
CPT/HCPCS: 99214; G0463

== ENCOUNTER 2024-07-13 10:20 | Outpatient (AMB) | payer MEDICAID, SELFPAY ==
--- NOTE | 2024-07-13 10:25 | ACNOTE_ITS ---
Vital Signs 07/13/24 10:26 Height 1.8 m Height Method Stated Weight 70.023 kg Weight Measurement Method Standing Scale BMI 21.6 BP 142/94 H Blood Pressure Source Automatic Cuff Blood Pressure Location Left Upper Arm Position Sitting Respiration 16 Pulse 63 Pulse Source Monitor Temp 97.3 F Temp Source Temporal Artery Scan Pulse Oximetry (%) 97 Oxygen Delivery Method Room Air Allergies/Meds Allergies & Medications Allergies No Known Allergies Allergy (Verified 07/13/24 10:27) Medication Reconciliation ondansetron HCl 4 mg tablet 4 mg PO Q6H PRN Nausea 06/07/24 [History Confirmed 07/13/24] pantoprazole 40 mg tablet,delayed release (Protonix) 40 mg PO QDAY #30 tabs 06/08/24 [Rx Confirmed 07/13/24] sodium hypochlorite 0.125 % solution (Dakin's Solution) 1 applic topical BID #473 mL 06/08/24 [Rx Confirmed 07/13/24] thiamine mononitrate (vit B1) 100 mg tablet 100 mg PO BID #30 tabs 06/08/24 [Rx Confirmed 07/13/24] lisinopril 2.5 mg tablet 2.5 mg PO QDAY #30 tabs 07/13/24 [Rx] MA Intake Visit Data Collection New Patient or Established: Established Patient (seen at [facility] within 3 years) Seen by Clinical Staff ONLY (RN/MA): No Pain Present Currently: No Pain scale:: 0 Pain Scale Used: Hebert-Barr/Numerical Equipment Tech Required: No PCP or OBGYN visit in last 3 months: Yes Hx Now: No Do You Feel Safe at Home: Yes Smoking Status Smoking Status: Never smoker Immunization / Flu Flu Vaccine in the Last 12 Months: No Flu Vaccine Exclusion Criteria: No Exclusion Criteria Past Medical History Past Medical History NEUROLOGIC: Negative Seizures CARDIAC: Positive Congestive Heart Failure; Negative Cardiac Disorders RESPIRATORY: Negative Chronic Obstructive Pulmonary Disease (COPD) or Asthma GASTROINTESTINAL: Positive Gastrointestinal Disorders GENITOURINARY: Positive Kidney Stones; Negative Renal Disease ENDOCRINE: Negative Diabetes Mellitus Type 1 or Diabetes Mellitus Type 2 HEMATOLOGIC: Negative Sickle Cell Disease PSYCHO/SOCIAL: Positive Recreational Drug Use, Depression and Anxiety OTHER HISTORY: Negative Blood Transfusions, Blood Transfusion Reaction or Anesthesia Reactions Family History FAMILY HISTORY: Positive Family Cardiac Disorders Surgical History SURGICAL: Positive Abdominal Surgery Social History SMOKING STATUS: Smoking status: Never smoker ALCOHOL: Alcohol Intake: Former HOUSING: Housing: Homeless LIVES WITH: Lives With: Alone Patient Portal Irma Social History Living Situation History Housing: Homeless Housing Other:: Pt resides w/family Tobacco History Smoking Status: Never smoker Alcohol History Alcohol Intake: Former Domestic Abuse History Do You Feel Safe at Home: Yes Review of Systems Report any current symptoms Only answer those that you have currently: Past Medical History Past Medical History Have you ever been diagnosed with any of the following: Neurological Problems Seizures: No Cardiology Problems Congestive Heart Failure: Yes Respiratory Problems Chronic Obstructive Pulmonary Disease (COPD): No Asthma: No Genital/Urinary Problems Renal Disease: No Kidney Stones: Yes Endocrine Problems Diabetes Mellitus Type 1: No Diabetes Mellitus Type 2: No Blood Problems Sickle Cell Disease: No Psychologic Problems Recreational Drug Use: Yes Depression: Yes Anxiety: Yes Other Problems Blood Transfusions: No Blood Transfusion Reaction: No Anesthesia Reactions: No History of Present Illness HPI Narrative 54 y/o M with PMHx significant for of alcohol use disorder presented to clinic for follow up on recent hospitilization. Patient was discharged from hospital on 06/08 due to alcohol withdrawal. During stay, patient was treated for cellulitis of left heel. Patient was also evaluated for HFrEF, was unable to obtain echo inpatient. Lung nodule seen on CXR, appears stable compared to previous CT in 2018, but no workup done. Patient reports no alcohol use since discharge. Has completed his course of antibiotics. Heel ulcer examined, no discharge, clean, minimally tender. Denies orthopnea, weakness, fatigue, leg swelling. Referral to wound care placed. CT chest w/ contrast and echo ordered. Will follow up with patient. 07/13/24: Patient presents for follow up on test results. Was unable to get CT chest and echo performed, it seems referral was not sent properly. Will resend referral. Blood pressure elevated on 2 readings, patient reports home BP WNL. Encouraged patient to keep BP log and bring to next visit. Patient denies SOB, weakness, fatigue, chest pain, palpitations, orthopnea. Will follow up with patient regarding imaging results. Review of Systems Review of Systems Systems Reviewed: All systems reviewed, normal except as documented Objective/Exam Narrative Physical exam: PE: Gen: Well-developed and well-nourished. HEENT: NCAT, PERRLA, EOMI, MMM, anicteric conjunctivae. CVS: normal S1 and S2. RRR. No M/R/G. Resp: CTA B/L. No rhonchi, rales, crackles or wheezing. Abd: soft, non-tender, non-distended. BS+ in all 4 quadrants. MSK: Good ROM in BUE & BLE. No edema or rash. Left heel ulcer. Dry, nontender, healing well. Neuro: CN II-XII grossly intact. Strength 5/5 in BUE & BLE. Alert and oriented x3. Psych: appropriate mood and affect. Assessment & Plan Diagnosis / Problem List (1) Reduced ejection fraction concurrent with and due to chronic heart failure: Status: Chronic Assessment & Plan: Patient had echo in 2020 showing LVEF 35-40%. Was unable to get echo in past month. BP elevated in office. Plan: -Patient to continue lisinopril 2.5mg daily -Patient to obtain echo doppler outpatient. Referral resent. -Patient to keep BP log for next visit (2) Lung nodule seen on imaging study: Status: Acute Assessment & Plan: Lung nodule seen on CT in 2017, unclear workup. CXR 2024 did not show change. Plan: -Patient to obtain CT chest w/ contrast outpatient. Referral resent. (3) Cellulitis of foot: Status: Acute Assessment & Plan: Patient treated for cellulitis of left heel in hospital. Completed course of antibiotics. Heel examined, ulcer healing well Plan: -Referral to wound care -Discussed keeping wound clean and dry with patient Plan Plan of care discussed with attending Dr. Kidd. Zhou Landis MD PGY-1 Office Procedures [facility] Level of Care Nursing/Assessment Patient Status: Established Patient Nursing Assessment/Reassessment: Medication Reconciliation, Update PMH in EMR and Vital Signs Coordination of Care: Complex Care and Chronic Disease 1-5, Consent,records obtained, informed consent, Education Simp Pt/Fam, Lab and Imaging orders and Staff clarify orders Established Patient Charge Established Patient Point Assignment: 100 Established Patient Point Charge: EP Level 3 (80-115)
[2024-07-13 10:26] VITALS: BP 142/94; PULSE 63; RESP 16; TEMP 36.3; O2SAT 97; BMI 21.6
== END 2024-07-13 10:54 | disposition home or self-care (01) ==
LOC: HODAHC 10:20
PROVIDERS: Supervising Provider Internal Medicine
DX: L03.116 Cellulitis of left lower limb (principal); R91.1 Solitary pulmonary nodule; I50.20 Unspecified systolic (congestive) heart failure
CPT/HCPCS: 99213; G0463

== ENCOUNTER → 2024-10-30 | Outpatient (CLI) | payer MEDICAID, SELFPAY ==
--- NOTE | 2024-10-30 13:16 | ECHO_ITS ---
Transthoracic Echo Report Ht (in): 71 Wt (lb): 157 Exam Location: Echo Lab Status: Outpatient Log Loader Helper: Yolande Carson Indications: Procedure Performed: BP: / HR: Technical Quality: Adequate MEASUREMENTS (Male / Female) Normal Values 2D ECHO LV Diastolic Diameter PLAX 5.8 cm 4.2 - 5.9 / 3.9 - 5.3 cm LV Systolic Diameter PLAX 5.0 cm IVS Diastolic Thickness 0.5 cm 0.6 - 1.0 / 0.6 - 0.9 cm LVPW Diastolic Thickness 0.7 cm 0.6 - 1.0 / 0.6 - 0.9 cm LV Relative Wall Thickness 0.2 LVOT Diameter 2.2 cm LA Volume Index 23.2 cm?/m? 16 - 28 cm?/m? Ascending Aorta Diameter 3.5 cm DOPPLER AV Peak Velocity 109.0 cm/s AV Peak Gradient 4.8 mmHg LVOT Peak Velocity 97.0 cm/s LVOT Peak Gradient 3.8 mmHg AV Area Cont Eq pk 3.4 cm? MV Area PHT 2.3 cm? Mitral E Point Velocity 48.4 cm/s Mitral A Point Velocity 44.7 cm/s Mitral E to A Ratio 1.1 LV E' Lateral Velocity 10.9 cm/s Mitral E to LV E' Lateral Ratio 4.4 LV E' Septal Velocity 6.9 cm/s Mitral E to LV E' Septal Ratio 7.1 PV Peak Velocity 82.4 cm/s PV Peak Gradient 2.7 mmHg FINDINGS Left Ventricle The left ventricular cavity size is moderately increased. The left ventricular wall thicknesses are normal. The left ventricular ejection fraction is moderately decreased, estimated at 35- 40%. There is grade I diastolic dysfunction of the left ventricle (impaired relaxation pattern). Right Ventricle The right ventricle is normal in size and systolic function. The estimated right ventricular systolic pressure can not be determined due to innadequate Doppler signal. Left Atrium The left atrium is moderately dilated. Right Atrium The right atrium is normal by two-dimensional imaging, color flow and Doppler imaging with no structural abnormalities, no thrombus formation present. Atrial Septum The interatrial septum appears normal with no evidence of a shunt. Aorta The aorta is normal by two-dimensional, color flow and Doppler interrogation. Mitral Valve The mitral valve is normal by two-dimensional, color flow and Doppler interrogation. There is trace mitral regurgitation. Aortic Valve The aortic valve is trileaflet and normal by two-dimensional, color flow and Doppler interrogation. There is no significant aortic valve regurgitation. Tricuspid Valve The tricuspid valve is normal by two-dimensional, color flow and Doppler interrogation. There is no significant tricuspid valve regurgitation. Pulmonic Valve The pulmonic valve is not well visualized. There is no significant pulmonic valve regurgitation. Vessels The pulmonary artery appears normal. The inferior vena cava pulmonary and hepatic veins appear normal. Pericardium The pericardium is normal by two-dimensional imaging. There is no significant pericardial effusion. CONCLUSIONS Indications: Chronic Systolic CHF Moderately dilated LV with severe LV systolic dysfunction with an EF of 30 to 35%. Grade 1 diastolic dysfunction. Normal RV size and function. RVSP not measured. Trace MR and TR. Moderate left atrial dilatation. No Pericardial Effusion. Sameer Fernando (Electronically Signed) Final Date: 30 October 2024 20:14
== END | disposition home or self-care (01) ==
LOC: SDIM 13:02
DX: I08.1 Rheumatic disorders of both mitral and tricuspid valves (principal); I50.22 Chronic systolic (congestive) heart failure; I50.30 Unspecified diastolic (congestive) heart failure
CPT/HCPCS: 93306